=== PATIENT | male | born 1945 | race Caucasian/White ===

== ENCOUNTER → 2016-07-07 | Outpatient (CLI) | payer MEDICARE, BC ==
[~2016-07-07] MED LIST: ADVAIR 250/5028 PUFF IN; ADVAIR DISK28 PUFFS IN; ALBUTEROL-200 PUFFS/ IH; ALENDRONATE SOD70 M1 PO; AMOXICILLIN &500 MG PO; AMOXICILLIN 50500 MG PO; AMOXICILLIN/CLA1 TA2 PO; AMOXICOT500 MG PO; ANTIBIOTIC; ASPIRIN 81MG TA81 MG PO; AVPAK AZITHROM250 MG PO; AVPAK EXTENDED100 MG PO; AYR50 ML NS; AZITHROMYCIN250 MG PO; BACTRIM DS 8001 TAB PO; CARVEDILOL3.125 MG PO; CEFTIN500 MG PO; CHEWABLE ASPIRI81 MG PO; DILANTIN 100MG100 MG PO; DILANTIN100 MG PO; EFFIENT10 M2 PO; FLEXERIL10 MG PO; FLONASE 50 MCG16 GM; GABAPENTIN 600600 MG PO; GABAPENTIN300 MG PO; IBU-8800 MG PO; IBU800 MG PO; IPRATROPIUM BROM3 M1 IH; KEFLEX 500MG.500 MG PO; KEFLEX500 M1 PO; LEVAQUIN 750 M750 MG PO; LEVAQUIN500 MG PO; LEVOFLOXACIN 5500 MG PO; LEVOFLOXACIN 7750 M1 PO; LIPITOR80 MG PO; LORTAB 5/500 501 TAB PO; LORTAB 500 MG-71 TAB PO; MECLIZINE25 MG PO; MUCINEX600 MG PO; NAPROSYN 500MG500 MG PO; NAPROSYN500 M1 PO; NASONEX0.05 MG/AC INH; NYSTATIN 1100000 UNI PO; OXYGEN2; PANTOPRAZOLE40 M1 PO; PHENYTOIN PO; PRAVASTATIN 40M40 MG PO; PREDNICOT10 MG PO; PREDNISONE 20MG20 MG PO; PREDNISONE20 MG PO; PREDNISONE50 MG PO; PROAIR HFA0.09 MG/AC INH; ROBAXIN 500 MG500 MG PO; SPIRIVA18 MCG IH; THEO-DUR 300MG300 MG PO; TRAMADOL 50MG T50 M1 PO; TRAZODONE50 MG PO; ULTRAM ER200 MG PO
[2016-07-07 11:58] LABS: URINE BILIRUBIN - DIPSTICK NEGATIVE (NEG); URINE BLOOD 2+ (NEG)
[2016-07-07 12:04] LABS: BUN 14 mg/dL (7-18)
[2016-07-07 12:06] LABS: GFR (ESTIMATED) 60 ML/MIN (>60)
== END ==
LOC: LAB 10:50
PROVIDERS: Internal Medicine Nephrology
DX: N17.9 Acute kidney failure, unspecified (principal); R31.1 Benign essential microscopic hematuria

== ENCOUNTER 2016-08-14 06:05 | Day surgery (SDC) | payer MEDICARE, BC ==
[~2016-08-14] VITALS: Ht 167.6 cm; Wt 66.2 kg
[~2016-08-14 06:05] MED LIST changes: -AMOXICILLIN &500 MG PO; -ASPIRIN 81MG TA81 MG PO; -AVPAK EXTENDED100 MG PO; -AYR50 ML NS; -CARVEDILOL3.125 MG PO; -EFFIENT10 M2 PO; -FLONASE 50 MCG16 GM; -KEFLEX 500MG.500 MG PO; -LIPITOR80 MG PO; -PANTOPRAZOLE40 M1 PO; -TRAZODONE50 MG PO
[2016-08-14] MEDS ORDERED: KEFLEX 500MG.500 MG PO (06:15)
[2016-08-14] MEDS ORDERED: AVPAK EXTENDED100 MG PO (06:19)
[2016-08-14] MEDS ORDERED: TRAZODONE50 MG PO (06:20)
[2016-08-14] MEDS ORDERED: FLONASE 50 MCG16 GM (06:20)
[2016-08-14 06:42] LABS: HEMOGLOBIN 14.3 g/dL (14.1-18.0); LYMPH # 1.1 K/mm3 (0.7-4.5); LYMPH % 10.4 % (10-50)
--- NOTE | 2016-08-14 07:01 | Emergency Room Report ---
History of Present Illness Time Seen by [id number] Presenting Problem in Triage Pt arrived:Walked Presenting Problem:Short of breath x 3 weeks, is currently on an antibiotics per Dr. 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 N Clinical Suspician of Infection? N Mental Status: 1 - Regular (Normal Baseline) Sepsis Risk:Possible Sepsis Risk Have you (or family members/close friends) recently traveled outside the [place]? N If Yes, where/when: Have you had exposure to infectious disease within the past month? N TB? Other? Specify: Source patient, RN notes reviewed, old records Exam Limitations no limitations Comment pt with known copd o2 dep and has had progressive chest tightness over the last few days - he reports his breathing is more symptomatic - he has lt sided chest tightness zulema with use but also with rest now - he has abd coronary art on ct and has pos fh Cardiac Chest Pain Chest pain indicative of cardiac Yes Timing/Duration 1-3 hours, intermittent Severity/Quality moderate, tightness Location central Chest Pain Radiation no radiation Activities at Onset light activity, resting Nitro Today/Relief no nitro taken today Aspirin Treatment Today 325 mg x 1, provided by ED Beta claudio treatment today no beta claudio taken Cardiac risk factors Elevated lipids, + family history Prior Workup/Intervention no prior cardiac workup Timing/Duration this morning Severity moderate ALLERGIES Coded Allergies: No Known Allergies (09/27/15) Home Medications Active Scripts Prednisone (Prednisone 20MG) 20 MG PO DAILY #30 TAB Ref 5 Prov: 09/14/15 LEVOFLOXACIN (Levofloxacin) 500 MG PO 1100 #6 TABLET Prov: 09/28/15 Prednisone (Prednisone 20MG) 20 MG PO CONSULT PHARMACY #28 TAB Prov: 09/28/15 Reported Medications Gabapentin (Gabapentin 600MG) 600 MG PO Q8 #60 ALBUTEROL-IPRATROPIUM (Iprat-Albut 0.5-3(2.5) MG/3 Ml) 3 ML IH QID Tiotropium [place] (Spiriva) 18 MCG IH DAILY PRAVASTATIN SODIUM (Pravastatin Sodium) 40 MG PO QHS Albuterol (Albuterol-Hfa Inhaler) 1-2 PUFFS IH Q4HP PRN SHORTNESS OF BREATH #1 INH FLUTICASONE/SALMETEROL (Advair 500-50 Diskus) 1 PUFF IN BID CEPHALEXIN (Keflex 500MG Capsule) 500 MG PO BID #40 PHENYTOIN SODIUM EXTENDED (Phenytoin Sodium Extended) 400 MG PO QHS #120 Trazodone Hcl (Trazodone HCl) 50 MG PO QHS #30 Fluticasone Propionate (Flonase 50 Mcg Nasal [place]) 1 SPRAY NA DAILY #16 History Medical History General CAD? No Angina: No RI: No Hypertension? No Hyperlipidemia? Yes CHF? No DVT? No PE? No COPD? Yes Asthma? Yes Anemia? No GERD? No Gastric ulcers? No GI Bleed? No Hernia? No Thyroid Problems? No Hypothyroidism? No CVA? No Seizures? Yes Diabetes? No Insulin Dependent: No Insulin Pump: No Home FSBS? No Renal Insuffiency? No End Stage Renal Disease? No UTI? No Stones? No BPH? No GB Disease: No Nephritic Syndrome? No Asplenia? No Hepatitis? No Sickle Cell Disease? No Arthritis? No Migraines? No Cataracts? No Glaucoma? No MRSA? No HIV? No TB? No Anxiety? No Depression? No Cancer? No More? Yes Additional hx: FACIAL FX 08/2015 Immunization Hx DT/Tetanus 03/24/16 Flu Refused Pneumonia Received In Past Surgical Hx Previous Surgery?Y CYST FROM BACK LT ANKLE CHEST TUBE Family History Family Hx Diabetes No CAD No Hypertension No Hyperlipidemia Yes Cancer No TB No Social History Smoking Hx Smoker: Former Smoker Tobacco: No Alcohol Alcohol: No Drugs none Review of Systems All Other Systems Reviewed and Negative Constitutional denies fever Eyes denies drainage ENT denies: ear pain, epistaxis, throat pain. Respiratory see HPI, denies cough, shortness of breath, denies wheezing Cardiovascular chest pain, denies palpitations, denies syncope Gastrointestinal denies diarrhea, denies vomiting Genitourinary denies: dysuria, frequency, hesitancy, hematuria. Musculoskeletal denies back pain, denies joint pain, denies joint swelling, denies neck pain Skin denies rash Psychiatric/Neurological denies headache, denies seizure Physical Exam Vital Signs Vital Signs Date Time Temp Pulse Resp B/P Pulse O2 O2 Flow FiO2 Ox Delivery Rate 08/14 0817 90 20 135/76 95 2 08/14 0740 85 20 148/80 96 2 08/14 0703 72 18 121/64 96 08/14 0638 2 08/14 0638 2 08/14 0538 2 08/14 0538 98 2 08/14 0610 97.9 99 24 135/84 97 2 08/14 0608 99 - WBC >12,000 or <4,000 or 10% bands? 2 or more SIRS Criteria Met? B/P:135/76 MAP:101 Creatinine >2.0? UA output<0.5ml/kg/hr for 2 hrs? Platelet count >100,000? Lactate >2.0mmol/1? INR >1.2 or PTT > than 60 sec? Evidence of Organ Dysfunction? Provider documented clinical suspician of infection? N Sepsis Criteria Count: 2 Sepsis Risk: Possible Sepsis Risk General Appearance no apparent distress Eye Exam - bilateral eye PERRL, bilateral eye EOMI Ear, Nose, Throat normal ENT inspection Neck supple Respiratory Status No: respiratory distress. Lung Sounds bilateral: decreased breath sounds. 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 No Results/Orders Laboratory Tests 08/14/16 0620: Lactic Acid 1.9 08/14/16 0620: Sodium 138, Potassium 3.6, Chloride 102, Carbon Dioxide 27, BUN 16, Creatinine 1.0, Estimated Creat Clear 64, Estimated GFR (MDRD) 74, Glucose 135 H, Calcium 8.6, Total Bilirubin 0.2, AST 9 L, ALT 21, Alkaline Phosphatase 122 H, Total Protein 6.7, Albumin 3.3 L, Globulin 3.4 H, Albumin/Globulin Ratio 1.0 L, WBC 10.6, RBC 4.81, Hgb 14.3, Hct 39.5 L, MCV 82.3, RDW 14.5, Plt Count 252, MPV 5.8 L, Gran % 77.1, Gran # 8.2 H, Lymphocytes % 10.4, Monocytes % 4.9, Eosinophils % 7.3, Basophils % 0.2, Lymphocytes # 1.1, Monocytes # 0.5, Eosinophils # 0.8 H, Basophils # 0.0, PUBS MCHC 36.2 H, MCH 29.8 08/14/16 0015: Creatine Kinase 109, CK-MB (CK-2) Rel Index 2.6, CK and CKMB Interp 2.8, Troponin I < 0.02 Current Medication Orders Sig/Faraz Start time Last Medication Dose Route Stop Time Status Admin Methylprednisolone 125 MG ONCE ONE 08/14 0800 DC Sodium Succinate IV 08/14 0801 Albuterol/Ipratropium 0 .STK-MED ONE 08/14 0632 DC INH Albuterol/Ipratropium 3 ML ONCE ONE 08/14 06 DC 08/14 INH 08/14 0631 0637 Sodium Chloride 10 ML PRN PRN 08/14 06 AC IV 08/15 06 Orders Procedure Date/time Status LHC W/VENTRICLE 08/14 0834 Active 12 LEAD EKG-BESSON (INITIAL) 08/14 0710 Active ELECTROCARDIOGRAM REQUEST 08/14 0710 Active CARDIAC ENZYMES 08/14 0710 Complete OP COURTSEY MEAL 08/14 0655 Active RT Pulse Oximetry, Provide 08/14 06 Active RT O2 Installation/Change Set 08/14 0638 Active RT O2 Therapy, Monitor/[place] 08/14 0638 Active RT Aerosol Treatment, Provide 08/14 06 Active RT Aerosol Treatment, Provide 08/14 06 Active IV SALINE LOCK 08/14 0625 Active RT REQUEST DUONEB 08/14 0624 Active OXYGEN PER NURSE 08/14 0624 Active CHEST(2 VIEWS-NOT PORTABLE) 08/14 06 Active CULTURE, BLOOD 08/14 06 Active LACTIC ACID 08/14 06 Complete CBC WITH AUTO DIFF 08/14 622 Complete CHEM 12 PROFILE 08/14 622 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 ST/Twave chgs XRAY/CT/US XRAY/CT/US XRAY chest XR interpretation by reviewed by me Xray Results abnormal (chronic changes ) Departure Departure Time of Disposition 0844 Disposition DC Home or Self Care(routine) Clinical Impression Primary Impression: Chest pain at rest Secondary Impressions: COPD (chronic obstructive pulmonary disease) Qualifiers: COPD type: unspecified COPD Qualified Code: J44.9 - Chronic obstructive pulmonary disease, unspecified Condition STABLE Referrals Faustino BURNS,Damian Dominguez (Family) had card see pt ED Critical Care Critical Care No Comments feel like his chest pain is anginal and has sig risk factors and ca on ct at 0846
--- NOTE | 2016-08-14 08:53 | CONSULT NOTE ---
Standard Demographics Patient Demo Date of Consultation: 08/14/16 Referring Provider: Michael Rodriguez MD Reason for Consultation: Unstable angina pectoris PRIMARY DIAGNOSIS: chest tightness, SOA Problem list Problem list: 1. Chronic obstructive pulmonary disease, chronic oxygen use A. Smoking discontinued [address] of the chest 2015 showing severe chronic obstructive pulmonary disease with evidence of coronary calcification. 2. Hyperlipidemia 3. Family history of coronary disease in a younger brother with history of 3 myocardial infarctions was a nonsmoker 4. Abnormal electrocardiogram with nonspecific ST-T abnormalities. History of present illness: History of present illness: 70-year-old white male with known severe chronic obstructive pulmonary disease that is oxygen requiring was seen in the emergency department for increasing shortness of breath and chest tightness over the last 2 weeks. Patient has been aggressively treated in an outpatient setting with antibiotics and steroids without improvement. He relates he cannot walk more than 40 feet without having chest tightness that resolves with rest. This a.m. he was in route to work when the shortness of breath and chest tightness onset worse than previous. He came to the emergency department for treatment. Electrocardiogram in the emergency room shows sinus rhythm with nonspecific ST-T abnormalities. Initial troponin is normal. Chest x-ray shows no significant change in chronic obstructive pulmonary disease pattern. Patient has some chronic left-sided chest pain from her previous chest tube 2 years ago due to a collapsed lung. The symptoms he is experiencing at this time are different. Patient does relate a a younger, nonsmoker brother who has had 3 myocardial infarctions. Patient had a CT of the chest last year that showed coronary calcification in addition to severe chronic obstructive pulmonary disease. Due to suspected unstable angina pectoris cardiology consulted for evaluation and recommendations. Past Medical History: General: Hypertension No CVA No Seizures Yes TB No COPD Yes Asthma Yes Diabetes No Insulin Dependent No Insulin Pump No Angina No VA No Hyperlipidemia Yes Urinary No Cancer No Rheumatic H.D. No Ulcers No MRSA No GB Disease No Other EMPHYSEMA Additional hx FACIAL FX 08/2015 Past Surgical HX: Previous Surgery?Y CYST FROM BACK LT ANKLE CHEST TUBE Allergies Coded Allergies: No Known Allergies (09/27/15) Home medications: Active Scripts Prednisone (Prednisone 20MG) 20 MG PO DAILY #30 TAB Ref 5 Prov: 09/14/15 LEVOFLOXACIN (Levofloxacin) 500 MG PO 1100 #6 TABLET Prov: 09/28/15 Prednisone (Prednisone 20MG) 20 MG PO CONSULT PHARMACY #28 TAB Prov: 09/28/15 Reported Medications Gabapentin (Gabapentin 600MG) 600 MG PO Q8 #60 ALBUTEROL-IPRATROPIUM (Iprat-Albut 0.5-3(2.5) MG/3 Ml) 3 ML IH QID Tiotropium [place] (Spiriva) 18 MCG IH DAILY PRAVASTATIN SODIUM (Pravastatin Sodium) 40 MG PO QHS Albuterol (Albuterol-Hfa Inhaler) 1-2 PUFFS IH Q4HP PRN SHORTNESS OF BREATH #1 INH FLUTICASONE/SALMETEROL (Advair 500-50 Diskus) 1 PUFF IN BID CEPHALEXIN (Keflex 500MG Capsule) 500 MG PO BID #40 PHENYTOIN SODIUM EXTENDED (Phenytoin Sodium Extended) 400 MG PO QHS #120 Trazodone Hcl (Trazodone HCl) 50 MG PO QHS #30 Fluticasone Propionate (Flonase 50 Mcg Nasal [place]) 1 SPRAY NA DAILY #16 Current Medications: Current Medications Heparin Sodium/Sodium Chloride 1,500 ML .STK-MED ONE IV (DC) Lidocaine HCl 0 .STK-MED ONE .ROUTE (DC) Sodium Chloride 1,000 ML .STK-MED ONE IV (DC) Methylprednisolone Sodium Succinate 125 MG ONCE ONE IV (DC) Albuterol/Ipratropium 0 .STK-MED ONE INH (DC) Albuterol/Ipratropium 3 ML ONCE ONE INH (DC) Sodium Chloride 10 ML PRN PRN IV Immunization HX DT/Tetanus 03/24/16 Flu Refused Pneumonia RECEIVED IN PAST Family history Family HX Family Hx Insignificant No Diabetes No CAD No Hypertension No Hyperlipidemia Yes Cancer No TB No Social Hx: Smoking HX Tobacco No Alcohol Alcohol: No Hx of Drug Use Drug Use? No Patien't marital status is single Patient's support system is good Review of systems: Constitutional No: no symptoms reported. Respiratory see HPI, SOB with excertion. Cardiovascular see HPI, chest pain Gastrointestinal/Abdominal No no symptoms reported Genitourinary No: no symptoms reported. Musculoskeletal other (chronic left-sided chest pain). Neurological Yes: parasthesia. Exam: Admission Vital Signs: 1ST Vital Signs Result Date Time Pulse Ox 99 08/14 0608 B/P 135/84 08/14 0610 O2 Flow Rate 2 08/14 0510 Temp 97.9 08/14 0610 Pulse 99 08/14 0610 Resp 24 08/14 609 Last Vital Signs: Vital Signs Result Date Time Pulse Ox 95 08/14 816 B/P 135/76 08/14 816 O2 Flow Rate 2 08/14 816 Pulse 90 08/14 816 Resp 20 08/14 816 Temp 97.9 08/14 0510 Exam General appearance: alert, awake, no acute distress Neck: no carotid bruit, no JVD Cardiovascular: regular rate & rhythm, no murmur Respiratory: markedly diminished breath sounds bilaterally without rhonchi or wheezing at this time. ABD: soft, no tenderness Extremities: moves all, no peripheral edema Neuro: alert, intact, oriented, speech clear Plan: Assessment: 1. Unstable angina pectoris in a patient with HEMANT score of 3 (age, recurrent chest pain, cardiac risk factors including chest CT with coronary calcification noted, strong family history of early coronary artery disease in his brother and hyperlipidemia). Patient would not be able to undergo stress testing as he would not be able to walk more than 40 feet and I do not think he would tolerate Lexiscan due to severe COPD. I believe it is appropriate to proceed with cardiac catheterization to define the patient's coronary anatomy. Risks and benefits discussed with the patient. He agrees to proceed. Patient will receive adult strength aspirin. 2. Severe chronic obstructive pulmonary disease 3. Hyperlipidemia 4. Strong family history of coronary artery disease 5. Nonspecific ST-T abnormalities on electrocardiogram Recommendations: See above. at 0854
--- NOTE | 2016-08-14 11:11 | RADIOLOGY REPORT PS360 ---
CHEST(2 VIEWS-NOT PORTABLE) HISTORY: Cough and wheezing with shortness of air SOA ORDERING PHYSICIAN: Carlota Rodriguez MD PATIENT AGE: 70 years COMPARISON: 09/27/2015 FINDINGS: The cardiomediastinal silhouette and pulmonary vascularity are within normal limits. COPD with chronic coarsening of the bronchovascular markings. Minimal atelectatic changes present in the left lower lobe. No lobar consolidation or collapse.. There is a 5 cm pneumatocele in the left perihilar region not significantly changed. There is moderate wedging of T7 anteriorly not significant change from prior chest CT of 01/02/2016. IMPRESSION: 1. Emphysematous changes with left perihilar pneumatocele and minimal atelectatic change in left lower lobe. No acute infiltrate. 2. Chronic wedge compressive changes at T7
--- NOTE | 2016-08-14 11:56 | RADIOLOGY REPORT PS360 ---
CARDIAC CATHETERIZATION DATE OF CATHETERIZATION:08/14/2016 10:27 AM PROCEDURES: 1. Catheter placement in the right radial artery 2. Right radial artery retrograde angiogram 3. Left heart catheterization 4. Left ventriculogram 5. Selective coronary angiogram 6. Angioplasty to the proximal circumflex artery INDICATION FOR TEST: 1. Coronary artery disease 2. Unstable angina 3. Right radial artery tortuosity Informed consent was obtained prior to the procedure. COMPLICATIONS: None ESTIMATED BLOOD LOSS: Less than 10 ml. TECHNIQUE: One percent lidocaine was used to anesthetize the right anterior aspect of the right wrist. The right radial artery was accessed via the Seldinger technique and a 6 [place] hydrophilic sheath was placed in the right radial artery. 5000 units of heparin as well as verapamil and nitroglycerin was administered intra-arterially. The initial wire would not easily traverse the proximal portion of the radial artery therefore the [place]ida catheter was advanced and retrograde angiography was performed. This demonstrated a corkscrew radial artery. An angled Glidewire was initially used to try to negociate the tortuosity however I continually entered a side branch and after a few attempts I decided to have band in the radial access and proceed with femoral access. 1% lidocaine was used to anesthetize the right groin in the right femoral artery was accessed via the Seldinger technique. A 4 [place] sheath was placed in the right femoral artery and a JL 4 JR4 catheter were used to perform left heart catheterization left ventriculogram and selective coronary angiography. At the end of the diagnostic procedure an additional 2000 units of heparin was administered intravenously and the ACT was measured at 249 seconds. An additional 2000 units of heparin was ordered because of Hemochron machine the ACT needed to be greater than 250. He BU3.75 guide catheter was used intubate the left main artery and a BMW wire was used to traverse the stenosis in the obtuse marginal artery. Initially 1.5 x 12 mm balloon was used to predilate the stenosis however I could not get this to cross the severe eccentric calcified obtuse marginal artery. A 1.5 x 6 mm balloon was then advanced until the proximal portion and then inflated at 20 armani also without success. A 1.25 x 15 mm balloon was then advanced and also would not traverse the stenosis. I was able to get the proximal tip to the calcified lesion in either and after 20 armani of inflation there was no reduction in the calcification. And a final attempt a guideline her was placed in the proximal portion of the circumflex artery and still a fresh 1.25 mm balloon would not traverse the stenosis. At this point I decided to abandon the procedure and transfer patient to [facility] for rotablator of the circumflex artery and most likely percutaneous revascularization the dominant right coronary artery. The apparatus was removed the groin was reprepped gloves were changed sheath was removed good hemostasis was achieved using Perclose device H was transferred to the postop holding area in stable condition and waiting transfer to [facility] under Narendra Rey M.D.'s care. ANGIOGRAPHIC RESULTS: 1. The left main artery has a distal eccentric 30% stenosis 2. The left anterior descending artery has a long mid vessel calcified 50-60% stenosis 3. The circumflex artery is a nondominant vessel and has proximal eccentric 80% stenosis followed by a very eccentric calcified greater than 90% stenosis and a 2.5 mm first obtuse marginal artery 4. The right coronary artery is a very large dominant vessel and has diffuse vasculopathy from the proximal mid and distal segment. Proximally there is a 50-60% eccentric stenosis with additional 60% hazy stenosis and a hazy 70% stenosis immediately distal to the RV marginal branch followed by additional 50-60% distal stenoses followed by an additional very eccentric 50% stenosis immediately proximal to the junction of the posterior lateral ventricular branch and large posterior descending artery. The posterior lateral ventricular branch has mid vessel 40% plaque while the PDA also has 30-40% mid vessel plaque 5. The [place] OCA ventriculogram reveals normal ejection fraction estimated at 65% 6. The left ventricular end-diastolic pressure less than 10 mmHg IMPRESSION: 1. Severe 2 vessel coronary artery disease as described above 2. Angioplasty of the circumflex artery which did not reduce the highly eccentric calcified stenosis 3. Persistent severe stenosis in the first obtuse marginal artery and proximal nondominant circumflex artery 4. Persistent moderate to severe disease throughout the proximal mid distal dominant right coronary artery 5. Persistent moderate disease in the mid LAD 6. Normal ejection fraction 7. Normal left ventricular end-diastolic pressure 8. Tortuous but patent right radial artery PLAN: 1. Patient requires Rotablator to the circumflex artery. He'll be transferred to [facility] under Dr. Narendra Rey's care for evaluation of additional percutaneous revascularization 2. At this point I believe the LAD can be managed medically. 3. LDL less than 70 4. Risk factor modification 5. Patient will be transferred to [facility] this morning given his associated unstable anginal symptoms
[2016-08-14 13:38] VITALS: BP 128/87
[2016-08-26] MEDS ORDERED: ASPIRIN 81MG TA81 MG PO (18:25)
[2016-08-26] MEDS ORDERED: LIPITOR80 MG PO (23:27)
[2016-08-26] MEDS ORDERED: CARVEDILOL3.125 MG PO (23:36)
[2016-08-26] MEDS ORDERED: PANTOPRAZOLE40 M1 PO (23:41)
[2016-08-26] MEDS ORDERED: EFFIENT10 M2 PO (23:47)
[2016-08-26] MEDS ORDERED: AZITHROMYCIN250 MG PO (23:52)
[2016-08-28] MEDS ORDERED: AYR50 ML NS (15:56)
[2016-08-28] MEDS ORDERED: AMOXICILLIN &500 MG PO (15:58)
== END 2016-08-14 12:00 | disposition short-term general hospital (02) ==
LOC: ER 06:05 → SDC 08:38 → CATHLAB 08:38
PROVIDERS: Emergency Medicine; Internal Medicine
PROC: 4A023N7 Measurement of Cardiac Sampling and Pressure, Left Heart, Percutaneous Approach (ICD-10-PCS; 2016-08-14)
PROC: B2111ZZ Fluoroscopy of Multiple Coronary Arteries using Low Osmolar Contrast (ICD-10-PCS; 2016-08-14)
PROC: B2151ZZ Fluoroscopy of Left Heart using Low Osmolar Contrast (ICD-10-PCS; 2016-08-14)
PROC: 02703ZZ Dilation of Coronary Artery, One Artery, Percutaneous Approach (ICD-10-PCS; 2016-08-14)
PROC: B31H1ZZ Fluoroscopy of Right Upper Extremity Arteries using Low Osmolar Contrast (ICD-10-PCS; principal; 2016-08-14 10:00)
DX: I25.110 Atherosclerotic heart disease of native coronary artery with unstable angina pectoris (principal); I77.1 Stricture of artery; J44.9 Chronic obstructive pulmonary disease, unspecified; Z99.81 Dependence on supplemental oxygen
CPT/HCPCS: C1725; C1760; C1769; C1894; J1644; J2405; Q9967

== ENCOUNTER 2016-10-26 17:15 | Emergency (ER) | payer MEDICARE, BC ==
[~2016-10-26] VITALS: Ht 167.6 cm; Wt 67.6 kg
[~2016-10-26 17:15] MED LIST changes: +AMOXICILLIN &500 MG PO; +ASPIRIN 81MG TA81 MG PO; +AVPAK EXTENDED100 MG PO; +AYR50 ML NS; +CARVEDILOL3.125 MG PO; +EFFIENT10 M2 PO; +FLONASE 50 MCG16 GM; +KEFLEX 500MG.500 MG PO; +LIPITOR80 MG PO; +PANTOPRAZOLE40 M1 PO; +TRAZODONE50 MG PO
[2016-10-26] MEDS ORDERED: CLOPIDOGREL75 M2 PO (17:59)
[2016-10-26 18:23] LABS: HEMOGLOBIN 11.4 g/dL (14.1-18.0); LYMPH # 0.8 K/mm3 (0.7-4.5); LYMPH % 8.3 % (10-50)
[2016-10-26 18:36] LABS: NEUTROPHILS 83 % (42-76)
[2016-10-26 20:09] VITALS: BP 118/70
--- OUTSIDE RECORDS SUMMARY | 2016-10-27 07:38 | External Medical Summary Rpt ---
Author Author , Organization [employer] Address Unknown Phone Unavailable Purpose Continuity of Care Document - through 2016
--- OUTSIDE RECORDS SUMMARY | 2016-10-27 07:38 | External Medical Summary Rpt ---
Author Author [employer], [employer] Organization [employer] Address Unknown Phone Unavailable
--- OUTSIDE RECORDS SUMMARY | 2016-10-27 07:38 | External Medical Summary Rpt ---
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 Role Phone [facility], [facility] Purpose Continuity of Care Document - 05-04-2013 through 2016 Problems Code Diagnosis DOS Provider Status [id number] Chronic [facility] R04.0 EPISTAXIS Allergies, Adverse Reactions, Alerts Type Allergy to substance Adverse Reaction to Substance Substance Reaction Severity NO KNOWN ALLERGIES Unknown Unknown Vital Signs 05-04-2013 12:20 Name Value Interpretat Reference Comment ion Range Body 99.4 [degF] Temperature BP 93 mm[Hg] Diastolic BP Systolic 141 mm[Hg] Heart 90 /min Rate/Pulse O2% 97 % Respiratory 24 /min Rate Encounters Encounter Start End Date Code Location Performer Type Date Emergency MOISES Mckeon (ER) 3 12:15 3 12:28 [facility] Louie Dominguez
--- OUTSIDE RECORDS SUMMARY | 2016-10-27 07:38 | External Medical Summary Rpt ---
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
--- OUTSIDE RECORDS SUMMARY | 2016-10-27 07:38 | External Medical Summary Rpt ---
Demographics Preferred Language Hebrew Marital Status Unknown Hindu Affiliation Unknown Race Unknown Ethnic Group Unknown Author Author , Organization [employer] Address Unknown Phone Unavailable Purpose Continuity of Care Document - through 2016 Immunization No patient found.
--- OUTSIDE RECORDS SUMMARY | 2016-10-27 07:38 | External Medical Summary Rpt ---
Demographics Preferred Language Syriac Marital Status Unknown Buddhism Affiliation Unknown Race Unknown Ethnic Group Unknown Author Author , Organization [employer] Address Unknown Phone Unavailable Purpose Continuity of Care Document - through 2016 Immunization No patient found.
== END 2016-10-26 20:16 | disposition left against medical advice (07) ==
LOC: ER 17:15 → UTC 17:15 → ER 18:06
PROVIDERS: General Practice
DX: Z53.29 Procedure and treatment not carried out because of patient's decision for other reasons (principal); R04.0 Epistaxis

== ENCOUNTER 2017-05-13 22:24 | Inpatient (IN) | payer MEDICARE, BC ==
[~2017-05-13] VITALS: Ht 167.6 cm; Wt 62.3 kg
[~2017-05-13 22:24] MED LIST changes: +CLOPIDOGREL75 M2 PO
[2017-05-13 22:30] VITALS: BP 162/104
[2017-05-13 22:39] LABS: ARTERIAL PO2 87.7 MMHG (80-100)
[2017-05-13 22:40] LABS: ALLEN'S TEST ACCEPTABLE; ARTERIAL ABE 5.3 MMOL/L (-2.4-+2.3); ARTERIAL TCO2 31.8 MMOL/L (23-27); OXYGEN 2LPM NC.
[2017-05-13 22:54] LABS: LYMPH # 1.1 K/mm3 (0.7-4.5); LYMPH % 7.2 % (10-50)
[2017-05-13] MEDS ORDERED: DOXYCYCLINE HY100 MG PO (22:55)
[2017-05-13] MEDS ORDERED: ALENDRONATE SOD70 M1 PO (22:55)
[2017-05-13] MEDS ORDERED: SPIRIVA HA1 PUFF/INH IH (22:56)
[2017-05-13] MEDS ORDERED: FERROUS SULFAT325 M2 PO (22:56)
--- NOTE | 2017-05-13 22:56 | Emergency Room Report ---
History of Present Illness Time Seen by MD Krishna Presenting Problem in Triage Pt arrived:Walked Presenting Problem:C/O SHORTNESS OF BREATH. 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 N Clinical Suspician of Infection? N Mental Status: 1 - Regular (Normal Baseline) Sepsis Risk:Low Sepsis Risk Have you (or family members/close friends) recently traveled outside the [place]? N If Yes, where/when: Have you had exposure to infectious disease within the past month? N TB? Other? Specify: Source patient, RN notes reviewed, family, old records Exam Limitations no limitations Comment pt with hx of o2 dep copd with increasing sob despite op rx with pcp and abx/ steroids and breathing treatments- no chest pain or hemoptysis Cardiac Chest Pain Chest pain indicative of cardiac No Timing/Duration this evening Severity moderate ALLERGIES Coded Allergies: No Known Allergies (09/27/15) Home Medications Active Scripts Prednisone (Prednisone 20MG) 20 MG PO DAILY #30 TAB Ref 5 Prov: 09/14/15 Reported Medications Atorvastatin Calcium (Atorvastatin) 80 MG PO QHS ALBUTEROL-IPRATROPIUM (Iprat-Albut 0.5-3(2.5) MG/3 Ml) 3 ML IH QID Carvedilol (Carvedilol 3.125MG) 3.125 MG PO BID Pantoprazole Sodium (Pantoprazole) 40 MG PO DAILY Albuterol (Albuterol-Hfa Inhaler) 1-2 PUFFS IH Q4HP PRN SHORTNESS OF BREATH #1 INH FLUTICASONE/SALMETEROL (Advair 500-50 Diskus) 1 PUFF IN BID PHENYTOIN SODIUM EXTENDED (Phenytoin Sodium Extended) 400 MG PO QHS #120 Trazodone Hcl (Trazodone HCl) 50 MG PO QHS #30 Fluticasone Propionate (Flonase 50 Mcg Nasal [place]) 1 SPRAY NA DAILY #16 ASPIRIN (Aspirin) 81 MG PO DAILY CLOPIDOGREL BISULFATE (Clopidogrel) 75 MG PO DAILY #30 Alendronate Sodium 70 MG PO WEEKLY #12 Doxycycline Hyclate 100 MG PO BID #20 Tiotropium [place] (Spiriva) 1 PUFF IH DAILY #30 Ferrous Sulfate (Ferrous Sulfate 325MG) 325 MG PO BID History Medical History General CAD? Yes Angina: No NH: No Hypertension? No Hyperlipidemia? Yes CHF? No DVT? No PE? No COPD? Yes Asthma? Yes Anemia? No GERD? No Gastric ulcers? No GI Bleed? No Hernia? No Thyroid Problems? No Hypothyroidism? No CVA? No Seizures? Yes Diabetes? No Insulin Dependent: No Insulin Pump: No Home FSBS? No Renal Insuffiency? Yes End Stage Renal Disease? No UTI? No Stones? No BPH? No GB Disease: No Nephritic Syndrome? No Asplenia? No Hepatitis? No Sickle Cell Disease? No Arthritis? Yes Migraines? No Cataracts? No Glaucoma? No MRSA? No HIV? No TB? No Anxiety? No Depression? No Cancer? No More? Yes Additional hx: FACIAL FX 08/2015 Immunization Hx DT/Tetanus 03/24/16 Flu 2015-FSN Pneumonia Received In Past Surgical Hx Previous Surgery?Y CYST FROM BACK LT ANKLE CHEST TUBE STENTS X2 Family History Family Hx Diabetes No CAD No Hypertension No Hyperlipidemia Yes Cancer No TB No Social History Smoking Hx Smoker: Former Smoker Tobacco: No Type Cigarettes Packs/day N/A Alcohol Alcohol: No Drugs none Review of Systems All Other Systems Reviewed and Negative Constitutional denies fever Eyes denies drainage ENT denies: ear discharge, epistaxis, throat pain. Respiratory cough, shortness of breath, wheezing Cardiovascular denies chest pain, denies palpitations, denies syncope Gastrointestinal denies abdominal pain, denies diarrhea, denies vomiting Genitourinary denies: dysuria, frequency, hesitancy, hematuria. Musculoskeletal denies back pain, denies joint pain, denies joint swelling, denies neck pain Skin denies rash Psychiatric/Neurological denies headache, denies seizure Physical Exam Vital Signs Vital Signs Date Time Temp Pulse Resp B/P Pulse O2 O2 Flow FiO2 Ox Delivery Rate 05/13 2319 91 18 141/91 97 05/13 2230 97.8 94 18 162/104 98 - WBC >12,000 or <4,000 or 10% bands? 2 or more SIRS Criteria Met? B/P:141/91 MAP:123 Creatinine >2.0? UA output<0.5ml/kg/hr for 2 hrs? Platelet count >100,000? Lactate >2.0mmol/1? INR >1.2 or PTT > than 60 sec? Evidence of Organ Dysfunction? Provider documented clinical suspician of infection? N Sepsis Criteria Count: 1 Sepsis Risk: Low Sepsis Risk General Appearance no apparent distress Eye Exam - bilateral eye PERRL, bilateral eye EOMI Ear, Nose, Throat normal ENT inspection Neck non-tender Respiratory Status No: respiratory distress. Lung Sounds bilateral: decreased breath sounds, rhonchi, wheezing. 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 No Results/Orders Laboratory Tests 05/13/172238: Sodium 139, Potassium 3.7, Chloride 102, Carbon Dioxide 33 H, BUN 19 H, Creatinine 1.0, Estimated Creat Clear 63, Estimated GFR (MDRD) 74, Glucose 140 H, Calcium 8.8, Total Bilirubin 0.2, AST 11 L, ALT 22, Alkaline Phosphatase 138 H, Creatine Kinase 84, CK-MB (CK-2) Rel Index 3.5, CK and CKMB Interp 2.9, Troponin I < 0.02, Total Protein 7.1, Albumin 3.6, Globulin 3.5 H, Albumin/ Globulin Ratio 1.0 L, WBC 14.7 H, RBC 5.12, Hgb 13.4 L, Hct 42.3, MCV 82.7, RDW 17.0, Plt Count 237, MPV 6.4 L, Gran % 84.2 H, Gran # 13.0 H, Lymphocytes % 7.2 L, Monocytes % 6.4, Eosinophils % 1.9, Basophils % 0.3, Lymphocytes # 1.1 , Monocytes # 1.0, Eosinophils # 0.3, Basophils # 0.0, PUBS MCHC 31.7 L, MCH 26.2 L, Phenytoin Pending 05/13/172234: ABG pH 7.39, ABG pCO2 (Temp Corrct 50.6 H, ABG pO2 (Temp Correct 87.7, ABG HCO3 30.2 H, ABG Total CO2 31.8 H, ABG O2 Sat (Calculated) 96.7, ABG Base Excess 5.3 H, Dave Test ACCEPTABLE Current Medication Orders Sig/Faraz Start time Last Medication Dose Route Stop Time Status Admin Azithromycin 500 MG ONCE ONE 05/13 2330 AC 05/13 Sodium Chloride 250 ML IV 05/149 2327 Ceftriaxone Sodium 1 GM ONCE ONE 05/13 2330 AC 05/13 Sodium Chloride 50 ML IV 05/13 2359 232 Methylprednisolone 0 .STK-MED ONE 05/13 2301 DC Sodium Succinate .ROUTE Albuterol/Ipratropium 3 ML ONCE ONE 05/13 2300 DC 05/13 INH 05/13 2301 225 Methylprednisolone 125 MG ONCE ONE 05/13 2300 DC 05/13 Sodium Succinate IV 05/13 2301 230 Albuterol/Ipratropium 0 .STK-MED ONE 05/13 2245 DC INH Sodium Chloride 10 ML PRN PRN 05/13 2245 AC IV 05/14 2232 Orders Procedure Date/time Status Decision to admit 05/13 2323 Active PHENYTOIN (DILANTIN) 05/13 231 Active RT Aerosol Treatment, Provide 05/13 2258 Active RT REQUEST DUONEB 05/13 2249 Active 12 LEAD EKG-ZHAO (INITIAL) 05/13 2233 Active ELECTROCARDIOGRAM REQUEST 05/13 2233 Active ARTERIAL BLOOD GAS REQUEST 05/13 2233 Active CHEST-PORTABLE 05/13 2233 Active IV SALINE LOCK 05/13 2233 Active COMPLETE METABOLIC PANEL 05/13 2233 Complete CBC WITH AUTO DIFF 05/13 2233 Complete CARDIAC ENZYMES 05/13 2233 Complete CM/EKG CM/learning support assistant 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 ST/Twave chgs XRAY/CT/US XRAY/CT/US XRAY chest XR interpretation by reviewed by me Xray Results abnormal (copd) Departure Departure Time of Disposition 2330 Disposition Still a Patient Clinical Impression Primary Impression: COPD (chronic obstructive pulmonary disease) with acute bronchitis Condition STABLE Referrals Besson MD,Wilian discussed with dr dunbar ED Critical Care Critical Care No at 3028
[2017-05-13 22:57] LABS: HEMOGLOBIN 13.4 g/dL (14.1-18.0)
[2017-05-13 23:16] LABS: BUN 19 mg/dL (7-18); GFR (ESTIMATED) 74 ML/MIN (>60)
[2017-05-14 00:11] VITALS: BP 148/90
[2017-05-14 03:58] VITALS: BP 123/75
--- NOTE | 2017-05-14 05:43 | RADIOLOGY REPORT PS360 ---
CHEST-PORTABLE HISTORY: Shortness of breath sob ORDERING PHYSICIAN: Wilian Miller MD PATIENT AGE: 71 years COMPARISON: 08/14/2016 FINDINGS: The cardiomediastinal silhouette and pulmonary vascularity are within normal limits. Hyperinflation and hyperlucency consistent with obstructive chronic bronchitis. Lucency is once again noted in the left perihilar region consistent with a bulla. There is increased density in the right upper lobe laterally consistent with pneumonia. Chronic peribronchial inflammatory changes are noted. IMPRESSION: 1. Right upper lobe pneumonia. 2. COPD with left midlung bulla.
[2017-05-14 07:24] LABS: HEMOGLOBIN 12.3 g/dL (14.1-18.0); LYMPH # 0.7 K/mm3 (0.7-4.5)
[2017-05-14 08:00] VITALS: BP 130/67
--- NOTE | 2017-05-14 08:13 | PHARMACY CLINIC NOTE ---
Patient Demographics Patient Demographics Admission date: 05/14/17 Date: 05/14/17 Time: 0813 Allergies Coded Allergies: No Known Allergies (09/27/15) HEIGHT- FT: 5 IN: 6.00 K.313 VTE General Information Labs: Laboratory Tests 05/14 05/13 0612 2239 Hematology Hgb (14.1 - 18.0 g/dL) 12.3 L 13.4 L Hct (42.0 - 52.0 %) 38.0 L 42.3 Plt Count (142 - 424 K/mm3) 213 237 Disclaimer The following section includes nursing documentation that has been pulled in for pharmacy review. Patient's VTE score: 3 Patient's VTE Risk: LOW RISK Clinical trial participant? No VTE prophylaxis [id number] [id number] VTE prophylaxis ordered? Yes Type of prophylaxis/treatment: EDVIN at 0813
[2017-05-14 08:15] VITALS: BP 130/67
--- NOTE | 2017-05-14 08:39 | HISTORY AND PHYSICAL REPORT ---
Demographics: Admit date: 05/14/17 Chief complaint: shortness of breath PRIMARY DIAGNOSIS: COPD Allergies: Coded Allergies: No Known Allergies (09/27/15) History of present illness: History of present illness: 71 year old male with a history of HTN, CAD and COPD presented to the ED with increased shortness of breath and cough. Patient reports onset of cough and shortness of breath 2 weeks ago. He was seen by PCP and steroids were prescribed. Symptoms worsened this week and he went back to see his PCP. He was given more steroids and started on doxycycline 2 days ago. Patient states he became extremely short of breath last night and came to the ED for evaluation. Further reports productive cough and subjective temps. In the ED, CXR showed RUL pneumonia. He was also noted to have some mild leukocytosis. Patient was admitted to acute care for IV antibiotics, steroids and further evaluation. Past medical history: Family HX Diabetes No CAD Yes Hypertension Yes Hyperlipidemia Yes Cancer No TB No Immunization HX DT/Tetanus 5-10 Years Ago Flu 2016-SN Pneumonia Never Had TB Test in last year No General CAD? Yes Angina: No [place]: No Hypertension? No Hyperlipidemia? Yes CHF? No DVT? No PE? No COPD? Yes Asthma? Yes Anemia? No GERD? No Gastric ulcers? No GI Bleed? No Hernia? No Thyroid Problems? No Hypothyroidism? No CVA? No Seizures? Yes Diabetes? No Insulin Dependent: No Insulin Pump: No Home FSBS? No Renal Insuffiency? Yes UTI? No Stones? No BPH? No GB Disease: No Nephritic Syndrome? No Asplenia? No Hepatitis? No Sickle Cell Disease? No Arthritis? Yes Migraines? No Cataracts? No Glaucoma? No MRSA? No HIV? No TB? No Anxiety? No Depression? No Cancer? No More? Yes Additional hx: FACIAL FX 08/2015 Past Surgical HX Previous Surgery?Y CYST FROM BACK LT ANKLE CHEST TUBE STENTS X2 Current home meds: Active Scripts Prednisone (Prednisone 20MG) 20 MG PO DAILY #30 TAB Ref 5 Prov: 09/14/15 Reported Medications Atorvastatin Calcium (Atorvastatin) 80 MG PO QHS ALBUTEROL-IPRATROPIUM (Iprat-Albut 0.5-3(2.5) MG/3 Ml) 3 ML IH QID Albuterol (Albuterol-Hfa Inhaler) 1-2 PUFFS IH PRN PRN SOB #1 INH PHENYTOIN SODIUM EXTENDED (Phenytoin Sodium Extended) 400 MG PO QHS #120 CAPSULE Fluticasone Propionate (Flonase 50 Mcg Nasal [place]) 1 SPRAY NA DAILYP PRN CONGESTION #16 Carvedilol (Carvedilol 3.125MG) 3.125 MG PO BID Pantoprazole Sodium (Pantoprazole) 40 MG PO DAILY FLUTICASONE/SALMETEROL (Advair 500-50 Diskus) 1 PUFF IN BID Trazodone Hcl (Trazodone HCl) 50 MG PO QHS #30 ASPIRIN (Aspirin) 81 MG PO DAILY CLOPIDOGREL BISULFATE (Clopidogrel) 75 MG PO DAILY #30 Alendronate Sodium 70 MG PO WEEKLY #12 Doxycycline Hyclate 100 MG PO BID #20 Tiotropium [place] (Spiriva) 1 PUFF IH DAILY #30 Ferrous Sulfate (Ferrous Sulfate 325MG) 325 MG PO BID Social Hx: Smoking HX Tobacco No Type Cigarettes Packs/day N/A Alcohol Alcohol: No Hx of Drug Use Drug Use? No Patient's support system is good Review of systems: Constitutional fever. No: chills, diaphoresis, malaise (subjective). Eyes No: no symptoms reported. Ears, Nose, Mouth, Throat No ear pain, No ear discharge, No nose pain, No drooling/excessive saliva, nose discharge, No nose congestion, No mouth pain, No throat pain Respiratory see HPI. Cardiovascular No no symptoms reported Gastrointestinal/Abdominal No no symptoms reported Genitourinary No: no symptoms reported. Musculoskeletal No: no symptoms reported. Skin No: no symptoms reported. Neurological No: no symptoms reported. Psychiatric No: no symptoms reported. Exam: Lab data for last 24 hours: Laboratory Tests 05/14/17 06: Troponin I < 0.02 05/14/17 06: Sodium 141, Potassium 4.3, Chloride 104, Carbon Dioxide 30, BUN 15, Creatinine 0.9, Estimated Creat Clear 66, Estimated GFR (MDRD) 83, Glucose 132 H, Calcium 8.4 L, WBC 14.1 H, RBC 4.61, Hgb 12.3 L, Hct 38.0 L, MCV 82.4, RDW 17.0, Plt Count 213, MPV 6.8 L, Gran % 91.7 H, Gran # 13.0 H, Lymphocytes % 5.0 L, Monocytes % 3.1, Eosinophils % 0.1, Basophils % 0.0 L, Lymphocytes # 0.7, Monocytes # 0.4, Eosinophils # 0.0, Basophils # 0.0, PUBS MCHC 32.4, MCH 26.7 L 05/13/172238: Sodium 139, Potassium 3.7, Chloride 102, Carbon Dioxide 33 H, BUN 19 H, Creatinine 1.0, Estimated Creat Clear 63, Estimated GFR (MDRD) 74, Glucose 140 H, Calcium 8.8, Total Bilirubin 0.2, AST 11 L, ALT 22, Alkaline Phosphatase 138 H, Creatine Kinase 84, CK-MB (CK-2) Rel Index 3.5, CK and CKMB Interp 2.9, Troponin I < 0.02, Total Protein 7.1, Albumin 3.6, Globulin 3.5 H, Albumin/ Globulin Ratio 1.0 L, WBC 14.7 H, RBC 5.12, Hgb 13.4 L, Hct 42.3, MCV 82.7, RDW 17.0, Plt Count 237, MPV 6.4 L, Gran % 84.2 H, Gran # 13.0 H, Lymphocytes % 7.2 L, Monocytes % 6.4, Eosinophils % 1.9, Basophils % 0.3, Lymphocytes # 1.1 , Monocytes # 1.0, Eosinophils # 0.3, Basophils # 0.0, PUBS MCHC 31.7 L, MCH 26.2 L, Phenytoin 8.3 L 05/13/172234: ABG pH 7.39, ABG pCO2 (Temp Corrct 50.6 H, ABG pO2 (Temp Correct 87.7, ABG HCO3 30.2 H, ABG Total CO2 31.8 H, ABG O2 Sat (Calculated) 96.7, ABG Base Excess 5.3 H, Dave Test ACCEPTABLE Microbiology 05/14 800 SPUTUM: Sputum Culture - RECD 05/14 800 SPUTUM: Gram Stain - RECD Admission vital signs: 1ST Vital Signs Result Date Time Pulse Ox 98 05/13 2230 B/P 162/104 05/13 2230 Temp 97.8 05/13 2230 Pulse 94 05/13 2230 Resp 18 11/15 2230 O2 Delivery OXYGEN 05/14 0011 O2 Flow Rate 2 05/14 0011 Exam General appearance: normal appearance, active, no acute distress Eyes: anicteric ENT: mucous membranes moist Neck: normal inspection, non-tender, no JVD Cardiovascular: regular rate & rhythm, no murmur, normal peripheral pulses, no peripheral edema Respiratory: wheezes throughout all lung john, air flow diminished ABD: non-distended, normal bowel sounds, no rebound, soft, no tenderness, no guarding, no organomegaly Genitourinary: no dysuria, no hematuria Extremities: moves all Musculoskeletal: equal muscle strength, sensation intact Skin: dry, intact, normal color Neuro: alert, no deficit, normal mood/affect, oriented, speech clear Plan: Problem List 1. COPD (chronic obstructive pulmonary disease) with acute bronchitis 2. Pneumonia Plan: Continue IV antibiotics, steroids and nebulizer treatments. Obtain sputum culture today. at 0842
[2017-05-14 09:22] LABS: NEUTROPHILS 94 % (42-76)
[2017-05-14 16:17] VITALS: BP 125/78
[2017-05-14 20:09] VITALS: BP 113/71
[2017-05-15 04:32] VITALS: BP 112/66
[2017-05-15 08:00] VITALS: BP 113/71
--- NOTE | 2017-05-15 08:21 | ACUTE CARE PROGRESS NOTE (QUA) ---
Progress Notes Subjective Date 05/15/17 Time 0820 Note Overall feel somewhat better, continues to cough, continues to feel somewhat short of air with movement around his hospital room. Lungs have rhonchi in both lung bases, crackles in the RIGHT upper lung. Heart rate regular, abdomen soft, no edema, patient is alert and oriented 3. Objective Findings Last VS-Temp:97.5 B/P:113/71 Pulse:91 Resp:22 SaO2:98 OXYGEN Last weight lbs:137 oz:6 K.313 Method:Bed Scales Assessment/Plan Problem List 1. COPD (chronic obstructive pulmonary disease) with acute bronchitis 2. Pneumonia Patient condition Improving, await sputum culture for definitive antibiotic choice This inpt stay is expected to cross 2 MNs from start of care Yes at 0821
[2017-05-15 10:21] VITALS: BP 113/71
[2017-05-15 19:44] VITALS: BP 108/66
[2017-05-15 20:10] VITALS: BP 108/66
[2017-05-16] VITALS (7 sets, daily range): BP systolic 92–121; BP diastolic 57–80
--- NOTE | 2017-05-16 07:37 | ACUTE CARE PROGRESS NOTE (QUA) ---
Progress Notes Subjective Date 05/16/17 Time 0736 Note Overall feels a little better, coughing, poor sputum production. Feels a little better but short of air with exertion continues. Minimal rhonchi in both lung john, heart rate regular, abdomen soft, eating well, no edema Objective Findings Last VS-Temp:97.9 B/P:92/57 Pulse:75 Resp:16 SaO2:95 OXYGEN Last weight lbs:137 oz:6 K.313 Method:Bed Scales Assessment/Plan Problem List 1. COPD (chronic obstructive pulmonary disease) with acute bronchitis 2. Pneumonia Patient condition Improving Plan: continue current care, await culture results. Check labs today. Possible discharge tomorrow? This inpt stay is expected to cross 2 MNs from start of care Yes at 0737
[2017-05-16 08:16] LABS: HEMOGLOBIN 12.4 g/dL (14.1-18.0); LYMPH # 0.4 K/mm3 (0.7-4.5); LYMPH % 3.1 % (10-50)
[2017-05-16 10:05] LABS: NEUTROPHILS 86 % (42-76)
[2017-05-17 04:31] VITALS: BP 123/77
[2017-05-17 07:44] VITALS: BP 131/76
[2017-05-17 07:48] VITALS: BP 131/76
--- NOTE | 2017-05-17 08:16 | ACUTE CARE PROGRESS NOTE (QUA) ---
Progress Notes Subjective Date 05/17/17 Time 0815 Note Patient feels about the same, is ambulating about the room, eating well, continues to feel somewhat short of air and afflicted with a fairly productive cough. Lungs have scattered rhonchi throughout, better air movement than on admission. Heart rate regular. No edema. Abdomen soft. Patient is alert and pleasant. Objective Findings Last VS-Temp:97.9 B/P:131/76 Pulse:84 Resp:22 SaO2:96 OXYGEN Last weight lbs:137 oz:6 K.313 Method:Bed Scales Assessment/Plan Problem List 1. COPD (chronic obstructive pulmonary disease) with acute bronchitis 2. Pneumonia Patient condition Stable, sputum cultures show Pseudomonas and Klebsiella. We will change IV therapy to Zosyn and tobramycin, patient will need at least 1 more week of IV antibiotics given this culture result. Plan for swing bed transfer tomorrow. This inpt stay is expected to cross 2 MNs from start of care Yes at 0816
--- NOTE | 2017-05-17 14:04 | CONSULT NOTE ---
Pharmacokinetic Consult Date of consult: 05/17/17 Time of consult: 1402 Referring provider: DR. CHURCHILL Reason for consult: TOBRAMYCIN LEVELS Allergies: Coded Allergies: No Known Allergies (09/27/15) Home Medications: Active Scripts Prednisone (Prednisone 20MG) 20 MG PO DAILY #30 TAB Ref 5 Prov: 09/14/15 Reported Medications Atorvastatin Calcium (Atorvastatin) 80 MG PO QHS ALBUTEROL-IPRATROPIUM (Iprat-Albut 0.5-3(2.5) MG/3 Ml) 3 ML IH QID Albuterol (Albuterol-Hfa Inhaler) 1-2 PUFFS IH PRN PRN SOB #1 INH PHENYTOIN SODIUM EXTENDED (Phenytoin Sodium Extended) 400 MG PO QHS #120 CAPSULE Fluticasone Propionate (Flonase 50 Mcg Nasal [place]) 1 SPRAY NA DAILYP PRN CONGESTION #16 Carvedilol (Carvedilol 3.125MG) 3.125 MG PO BID Pantoprazole Sodium (Pantoprazole) 40 MG PO DAILY FLUTICASONE/SALMETEROL (Advair 500-50 Diskus) 1 PUFF IN BID Trazodone Hcl (Trazodone HCl) 50 MG PO QHS #30 ASPIRIN (Aspirin) 81 MG PO DAILY CLOPIDOGREL BISULFATE (Clopidogrel) 75 MG PO DAILY #30 Alendronate Sodium 70 MG PO WEEKLY #12 Doxycycline Hyclate 100 MG PO BID #20 Tiotropium [place] (Spiriva) 1 PUFF IH DAILY #30 Ferrous Sulfate (Ferrous Sulfate 325MG) 325 MG PO BID Height (feet): 5 Height (inches): 6.00 Medical History: CAD? Yes Angina: No [place]: No Hypertension? No Hyperlipidemia? Yes CHF? No DVT? No PE? No COPD? Yes Asthma? Yes Anemia? No GERD? No Gastric ulcers? No GI Bleed? No Hernia? No Thyroid Problems? No Hypothyroidism? No CVA? No Seizures? Yes Diabetes? No Insulin Dependent: No Insulin Pump: No Home FSBS? No Renal Insuffiency? Yes UTI? No Stones? No BPH? No GB Disease: No Nephritic Syndrome? No Asplenia? No Hepatitis? No Sickle Cell Disease? No Arthritis? Yes Migraines? No Cataracts? No Glaucoma? No MRSA? No HIV? No TB? No Anxiety? No Depression? No Cancer? No More? Yes Additional hx: FACIAL FX 08/2015 Labs: SRCR=1.1 Problem List: 1. Pneumonia Acute Plan: BASED ON PATIENT FACTORS, RECOMMEND TOBRAMYCIN 320 MG IV Q24H. WILL OBTAIN LEVELS AT 4 AND 12 HOURS POST INFUSION. PHARMACY WILL FOLLOW DAILY AND ADJUST APPROPRIATE. at 4509
[2017-05-17 15:51] VITALS: BP 135/71
[2017-05-17 20:14] VITALS: BP 129/83
[2017-05-17 21:00] VITALS: BP 129/83
[2017-05-18 04:08] VITALS: BP 140/76
[2017-05-18 06:48] LABS: HEMOGLOBIN 11.6 g/dL (14.1-18.0); LYMPH # 0.8 K/mm3 (0.7-4.5); LYMPH % 8.3 % (10-50)
[2017-05-18 08:00] VITALS: BP 134/87
--- NOTE | 2017-05-18 08:05 | ACUTE CARE PROGRESS NOTE (QUA) ---
Progress Notes Subjective Date 05/18/17 Time 0803 Note Overall patient is doing fairly well. Still with some cough, minimal shortness of air when he exerts himself. Lungs have rhonchi bilaterally, abdomen soft, no edema noted. Objective Findings Last VS-Temp:97.7 B/P:140/76 Pulse:77 Resp:18 SaO2:94 OXYGEN Last weight lbs:137 oz:6 K.313 Method:Bed Scales Assessment/Plan Problem List 1. COPD (chronic obstructive pulmonary disease) with acute bronchitis 2. Pneumonia 3. Pseudomonas pneumonia Patient condition Improving Plan: continue current care, plan to transfer to swing bed for 7 more days of IV antibiotics. Tolerated change to antipseudomonal coverage well yesterday. This inpt stay is expected to cross 2 MNs from start of care Yes at 0804
--- NOTE | 2017-05-18 08:15 | DISCHARGE SUMMARY STANDARD ---
Demographics Admit date: 05/14/17 Discharge date: 05/18/17 History of present illness History of present illness 71 year old male with a history of HTN, CAD and COPD presented to the ED with increased shortness of breath and cough. Patient reports onset of cough and shortness of breath 2 weeks ago. He was seen by PCP and steroids were prescribed. Symptoms worsened this week and he went back to see his PCP. He was given more steroids and started on doxycycline 2 days ago. Patient states he became extremely short of breath last night and came to the ED for evaluation. Further reports productive cough and subjective temps. In the ED, CXR showed RUL pneumonia. He was also noted to have some mild leukocytosis. Patient was admitted to acute care for IV antibiotics, steroids and further evaluation. Hospital Course Hospital Course: Patient was admitted to hospital, standard IV antibiotic for started and patient responded somewhat to these but continue to have lots of shortness of air especially with exertion and some sputum production. Cultures returned yesterday morning showing Pseudomonas and Klebsiella species. Antibiotics were changed to Zosyn and gentamicin. Patient's tolerated the first dose of these. Given his Pseudomonas pneumonia status and need for double coverage for IV antibiotics patient will be transferred to swing bed today for at least 7 and possibly 10 days of IV antibiotics. Admission status to swing bed: Mental status is good, rehab potential good, prognosis is good. Discharge diagnoses Problem List 1. COPD (chronic obstructive pulmonary disease) with acute bronchitis 2. Pneumonia 3. Pseudomonas pneumonia Medications Medications: Discharge meds are as noted. Follow up Follow up in office in: 1 DAY with: Wilian Miller MD at 0815
--- NOTE | 2017-05-18 08:58 | CONSULT NOTE ---
Pharmacokinetic Consult Date of consult: 05/18/17 Time of consult: 854 Referring provider: DR. CHURCHILL Reason for consult: TOBRAMYCIN LEVELS Allergies: Coded Allergies: No Known Allergies (09/27/15) Home Medications: Active Scripts Prednisone (Prednisone 20MG) 20 MG PO DAILY #30 TAB Ref 5 Prov: 09/14/15 Reported Medications Atorvastatin Calcium (Atorvastatin) 80 MG PO QHS ALBUTEROL-IPRATROPIUM (Iprat-Albut 0.5-3(2.5) MG/3 Ml) 3 ML IH QID Albuterol (Albuterol-Hfa Inhaler) 1-2 PUFFS IH PRN PRN SOB #1 INH PHENYTOIN SODIUM EXTENDED (Phenytoin Sodium Extended) 400 MG PO QHS #120 CAPSULE Fluticasone Propionate (Flonase 50 Mcg Nasal [place]) 1 SPRAY NA DAILYP PRN CONGESTION #16 Carvedilol (Carvedilol 3.125MG) 3.125 MG PO BID Pantoprazole Sodium (Pantoprazole) 40 MG PO DAILY FLUTICASONE/SALMETEROL (Advair 500-50 Diskus) 1 PUFF IN BID Trazodone Hcl (Trazodone HCl) 50 MG PO QHS #30 ASPIRIN (Aspirin) 81 MG PO DAILY CLOPIDOGREL BISULFATE (Clopidogrel) 75 MG PO DAILY #30 Alendronate Sodium 70 MG PO WEEKLY #12 Doxycycline Hyclate 100 MG PO BID #20 Tiotropium [place] (Spiriva) 1 PUFF IH DAILY #30 Ferrous Sulfate (Ferrous Sulfate 325MG) 325 MG PO BID Height (feet): 5 Height (inches): 6.00 Medical History: CAD? Yes Angina: No [place]: No Hypertension? No Hyperlipidemia? Yes CHF? No DVT? No PE? No COPD? Yes Asthma? Yes Anemia? No GERD? No Gastric ulcers? No GI Bleed? No Hernia? No Thyroid Problems? No Hypothyroidism? No CVA? No Seizures? Yes Diabetes? No Insulin Dependent: No Insulin Pump: No Home FSBS? No Renal Insuffiency? Yes UTI? No Stones? No BPH? No GB Disease: No Nephritic Syndrome? No Asplenia? No Hepatitis? No Sickle Cell Disease? No Arthritis? Yes Migraines? No Cataracts? No Glaucoma? No MRSA? No HIV? No TB? No Anxiety? No Depression? No Cancer? No More? Yes Additional hx: FACIAL FX 08/2015 Labs: Laboratory Tests 05/18/17 0625: Sodium 143, Potassium 4.1, Chloride 105, Carbon Dioxide 30, BUN 21 H, Creatinine 1.0, Estimated Creat Clear 60, Estimated GFR (MDRD) 74, Glucose 185 H, Calcium 8.7, WBC 10.0, RBC 4.44 L, Hgb 11.6 L, Hct 36.9 L, MCV 83.0, RDW 16.8, Plt Count 237, MPV 6.6 L, Gran % 86.1 H, Gran # 8.6 H, Lymphocytes % 8.3 L, Monocytes % 5.3, Eosinophils % 0.2, Basophils % 0.1, Lymphocytes # 0.8, Monocytes # 0.5, Eosinophils # 0.0, Basophils # 0.0, PUBS MCHC 31.3 L, MCH 26.0 L 05/17/17 2330: Random Tobramycin 1.0 05/17/17 1610: Random Tobramycin 4.1 Problem List: 1. Pseudomonas pneumonia Plan: 4.5-HOUR POST-INFUSION: 4.1 MCG/ML CALCULATED PEAK: 7.92 MCG/ML 12-HOUR POST-INFUSION: 1.0 MCG/ML CALCULATED TROUGH: 0.10 MCG/ML BASED ON TOBRAMYCIN LEVELS AND PATIENT FACTORS, RECOMMEND INCREASING DOSE TO TOBRAMYCIN 440 MG (7 MG/KG/DBW) IV Q24H. PHARMACY WILL CONTINUE TO MONITOR DAILY AND ADJUST APPROPRIATE. at 0858
[2017-05-18 09:33] LABS: NEUTROPHILS 86 % (42-76)
== END 2017-05-18 09:51 | disposition swing bed (61) | DRG 178 ==
LOC: ER 22:24 → 2ND 23:22 → ER 23:22 → 2ND 23:22
PROVIDERS: Emergency Medicine; Internal Medicine Adolescent Medicine
DX: J15.1 Pneumonia due to Pseudomonas (principal); J44.0 Chronic obstructive pulmonary disease with (acute) lower respiratory infection; Z99.81 Dependence on supplemental oxygen; J44.9 Chronic obstructive pulmonary disease, unspecified; J20.9 Acute bronchitis, unspecified; I10 Essential (primary) hypertension; I25.10 Atherosclerotic heart disease of native coronary artery without angina pectoris
CPT/HCPCS: C1751; J0456; J2543

== ENCOUNTER 2017-05-18 08:20 | Inpatient (IN) | payer MEDICARE, BC ==
[~2017-05-18] VITALS: Ht 167.6 cm; Wt 61.2 kg
[~2017-05-18 08:20] MED LIST changes: +DOXYCYCLINE HY100 MG PO; +FERROUS SULFAT325 M2 PO; +SPIRIVA HA1 PUFF/INH IH
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
--- OUTSIDE RECORDS SUMMARY | 2017-05-18 08:26 | External Medical Summary Rpt | CCD ---
Author Author [employer] Organization [employer] Address Unknown Phone Unavailable Purpose Continuity of Care Document - through 2016
--- OUTSIDE RECORDS SUMMARY | 2017-05-18 08:26 | External Medical Summary Rpt | CCD ---
Author Author , BONITA Organization [employer]ITA Address Unknown Phone [email or web address] Immunization Name Date Rout CVX Reac Dose Comm Prov Is Faci e tion ent ider Refu lity Give sed n Infl 10-0 141 999 Hist [facility] No [facility] uenz 1-20 oric 1 1 a, 16 al Seas Info onal rmat ion - Sour ce Unsp ecif ied Infl 01-0 140 999 Hist [facility] No [facility] uenz 1-20 oric 1 1 a, 15 al P-Fr Info ee rmat ion - Sour ce Unsp ecif ied
--- OUTSIDE RECORDS SUMMARY | 2017-05-18 08:26 | External Medical Summary Rpt | CCD ---
Author Author , BOINTA Organization [employer] Address Unknown Phone [email or web address] Immunization Name Date Rout CVX Reac Dose [...]
--- OUTSIDE RECORDS SUMMARY | 2017-05-18 08:27 | External Medical Summary Rpt ---
Author Author [employer], [employer] Organization [employer] Address Unknown Phone Unavailable Results Basic metabolic panel in Blood Observa Value Referen Units Interpr Notes Date tion ce etation Range Urea 7 - 18 mg/dL High No May 18 nitrogen informati 2016 6:25 [Mass/vol on in AM ume] in source Serum or data Plasma Calcium 8.5 - mg/dL Normal No May 18 [Mass/vol 10.1 informati 2016 6:25 ume] in on in AM Serum or source Plasma data Chloride 98 - 107 mmoL/L Normal No May 18 [Moles/vo informati 2016 6:25 lume] in on in AM Serum or source Plasma data Carbon 21.0 - mmoL/L Normal No May 18 dioxide, 32.0 informati 2016 6:25 total on in AM [Moles/vo source lume] in data Serum or Plasma Creatinin 0.70 - mg/dL Normal No May 18 e 1.30 informati 2016 6:25 [Mass/vol on in AM ume] in source Serum or data Plasma Creatinin 50 - 200 ML/MIN Normal No May 18 e renal informati 2017 6:25 clearance on in AM source predicted data by Cockcroft -Gault formula Estimated >60 ML/MIN No REFERENCE May 18 informati RANGE: 2017 6:25 glomerula on in >60 AM r source ML/MIN/1. filtratio data 73 SQUARE n rate METERSIf (GF this patient is -A merican, then multiply theresult by 1.210. Glucose 74 - 106 mg/dL High No May 18 [Mass/vol informati 2016 6:25 ume] in on in AM Serum or source Plasma data Potassium 3.5 - 5.1 mmoL/L Normal No May 18 informati 2016 6:25 [Moles/vo on in AM lume] in source Serum or data Plasma Sodium 136 - 145 mmoL/L Normal No May 18 [Moles/vo informati 2016 6:25 lume] in on in AM Serum or source Plasma data Tobramycin [Mass/volume] in Serum or Plasma Observa Value Referen Units Interpr Notes Date tion ce etation Range COMMENTS TO VICE CHAIRMAN: DO NOT NEED TO CALL PHARMACIST PROCESS DEVELOPMENT ENGINEER WITH LEVEL DATE OF LAST DOSE: 05/17/17 TIME OF LAST DOSE: 1030 Tobramyci No ug/mL No No May 17 n informati informati informati 2016 [Mass/vol on in on in on in 11:30 PM ume] in source source source Serum or data data data Plasma Tobramycin [Mass/volume] in Serum or Plasma Observa Value Referen Units Interpr Notes Date tion ce etation Range COMMENTS TO VICE CHAIRMAN: DO NOT NEED TO CALL PHARMACIST PROCESS DEVELOPMENT ENGINEER WITH LEVEL DATE OF LAST DOSE: 05/17/17 TIME OF LAST DOSE: 1030 Tobramyci No ug/mL No No May 17 n informati informati informati 2017 4:10 [Mass/vol on in on in on in PM ume] in source source source Serum or data data data Plasma CBC W Auto Differential panel in Blood Observa Value Referen Units Interpr Notes Date tion ce etation Range Basophils 0 - 0.2 K/MM3 Normal No May 16 inform2016 7:55 [#/volume on in AM ] in source Blood by data Automated count Basophils 0.1 - 2.0 % Low No May 16 informati 2017 7:55 leukocyte on in AM s in source Blood by data Automated count Eosinophi 0.0 - 0.4 K/mm3 Normal No May 16 ls informati 2016 7:55 [#/volume on in AM ] in source Blood by data Automated count Eosinophi 0.1 - % Normal No May 16 ls/100 12.0 informati 2016 7:55 leukocyte on in AM s in source Blood by data Automated count Granulocy 1.3 - 8.0 K/mm3 High No May 16 doug informati 2016 7:55 [#/volume on in AM ] in source Blood by data Automated count Granulocy 37.0 - % High No May 16 doug/100 80.0 informati 2016 7:55 leukocyte on in AM s in source Blood by data Automated count Hematocri 42.0 - % Low No May 16 t [Volume 52.0 informati 2016 7:55 on in AM Fraction] source of Blood data Hemoglobi 14.1 - g/dL Low No Nov 18 n 18.0 informati 2017 7:55 [Mass/vol on in AM ume] in source Blood data Lymphocyt 0.7 - 4.5 K/mm3 Low No Apr 18 es informati 2017 7:55 [#/volume on in AM ] in source Unspecifi data ed specimen by Automated count Lymphocyt 10 - 50 % Low No Apr 18 es informati 2016 7:55 [#/volume on in AM ] in source Unspecifi data ed specimen by Automated count Erythrocy 27 - 31.2 pg Low No May 16 te mean informati 2017 7:55 corpuscul on in AM ar source hemoglobi data n [Entitic mass] Erythrocy 31.8 - g/dl Low No May 16 te mean 35.4 informati 2017 7:55 corpuscul on in AM ar source hemoglobi data n concentra tion [Mass/vol ume] by Automated count Erythrocy 82.2 - fl Normal No May 16 te mean 97.8 informati 2017 7:55 corpuscul on in AM ar volume source [Entitic data volume] by Automated count Monocytes 0.1 - 1.0 K/mm3 Normal No May 16 informati 2016 7:55 [#/volume on in AM ] in source Blood by data Automated count Monocytes 1.7 - 9.3 % Normal No Apr 18 /100 informati 2017 7:55 leukocyte on in AM s in source Blood by data Automated count Platelet 7.4 - fl Low No May 16 mean 10.4 informati 2017 7:55 volume on in AM [Entitic source volume] data in Blood by Automated count Platelets 142 - 424 K/mm3 Normal No May 16 informati 2017 7:55 [#/volume on in AM ] in source Blood data Erythrocy 4.6 - 6.2 M/mm3 Normal No Apr 18 doug informati 2017 7:55 [#/volume on in AM ] in source Amniotic data fluid Erythrocy 11.5 - % Normal No May 16 te 17.5 informati 2017 7:55 distribut on in AM ion width source [Entitic data volume] by Automated count Leukocyte 4.8 - K/MM3 High No Apr 18 s 10.8 informati 2016 7:55 [#/volume on in AM ] in source Blood data Differential panel, method unspecified - Observa Value Referen Units Interpr Notes Date tion ce etation Range Helmet 1+ No No No No May 16 cells informa informa informa informa 2016 [Presen tion in tion in tion in tion in 7:55 AM ce] in source source source source Blood data data data data by Light microsc opy LYMPH 11 10 - 50 % Normal No May 16 informa 2016 tion in 7:55 AM source data Monocytes 2 - 9 % Normal No Apr 18 /100 informati 2017 7:55 leukocyte on in AM s in source Blood by data Automated count Ovalocy 1+ No No No No May 16 doug informa informa informa informa 2016 [Presen tion in tion in tion in tion in 7:55 AM ce] in source source source source Blood data data data data by Light microsc opy Platele NORMAL No No No No May 16 ts informa informa informa informa 2016 [Presen tion in tion in tion in tion in 7:55 AM ce] in source source source source Blood data data data data by Light microsc opy Neutrophi 42 - 76 % High No May 16 ls informati 2016 7:55 [#/volume on in AM ] in source Blood by data Automated count Cells No #CELLS No No May 16 Counted informati informati informati 2017 7:55 Total [#] on in on in on in AM in Blood source source source data data data Basic metabolic panel in Blood Observa Value Referen Units Interpr Notes Date tion ce etation Range Urea 7 - 18 mg/dL High No May 16 nitrogen informati 2017 7:55 [Mass/vol on in AM ume] in source Serum or data Plasma Calcium 8.5 - mg/dL Normal No May 16 [Mass/vol 10.1 informati 2016 7:55 ume] in on in AM Serum or source Plasma data Chloride 98 - 107 mmoL/L Normal No May 16 [Moles/vo informati 2016 7:55 lume] in on in AM Serum or source Plasma data Carbon 21.0 - mmoL/L Normal No May 16 dioxide, 32.0 informati 2016 7:55 total on in AM [Moles/vo source lume] in data Serum or Plasma Creatinin 0.70 - mg/dL No No May 16 e 1.30 informati informati 2017 7:55 [Mass/vol on in on in AM ume] in source source Serum or data data Plasma Creatinin 50 - 200 ML/MIN No No May 16 e renal informati informati 2017 7:55 clearance on in on in AM source source predicted data data by Cockcroft -Gault formula Estimated >60 ML/MIN No REFERENCE May 16 informati RANGE: 2017 7:55 glomerula on in >60 AM r source ML/MIN/1. filtratio data 73 SQUARE n rate METERSIf (GF this patient is -A merican, then multiply theresult by 1.210. Glucose 74 - 106 mg/dL High No May 16 [Mass/vol informati 2016 7:55 ume] in on in AM Serum or source Plasma data Potassium 3.5 - 5.1 mmoL/L Normal No May 16 informati 2016 7:55 [Moles/vo on in AM lume] in source Serum or data Plasma Sodium 136 - 145 mmoL/L Normal No May 16 [Moles/vo informati 2016 7:55 lume] in on in AM Serum or source Plasma data CBC W Auto Differential panel in Blood Observa Value Referen Units Interpr Notes Date tion ce etation Range Basophils 0 - 0.2 K/MM3 Normal No May 14 informati 2016 6:12 [#/volume on in AM ] in source Blood by data Automated count Basophils 0.1 - 2.0 % Low No Apr 16 /100 informati 2017 6:12 leukocyte on in AM s in source Blood by data Automated count Eosinophi 0.0 - 0.4 K/mm3 Normal No May 14 ls informati 2016 6:12 [#/volume on in AM ] in source Blood by data Automated count Eosinophi 0.1 - % Normal No May 14 ls/100 12.0 informati 2016 6:12 leukocyte on in AM s in source Blood by data Automated count Granulocy 1.3 - 8.0 K/mm3 High No May 14 doug informati 2016 6:12 [#/volume on in AM ] in source Blood by data Automated count Granulocy 37.0 - % High No May 14 doug/100 80.0 informati 2016 6:12 leukocyte on in AM s in source Blood by data Automated count Hematocri 42.0 - % Low No May 14 t [Volume 52.0 informati 2017 6:12 on in AM Fraction] source of Blood data Hemoglobi 14.1 - g/dL Low No May 14 n 18.0 informati 2017 6:12 [Mass/vol on in AM ume] in source Blood data Lymphocyt 0.7 - 4.5 K/mm3 Normal No May 14 es informati 2016 6:12 [#/volume on in AM ] in source Unspecifi data ed specimen by Automated count Lymphocyt 10 - 50 % Low No May 14 es informati 2016 6:12 [#/volume on in AM ] in source Unspecifi data ed specimen by Automated count Erythrocy 27 - 31.2 pg Low No May 14 te mean informati 2016 6:12 corpuscul on in AM ar source hemoglobi data n [Entitic mass] Erythrocy 31.8 - g/dl Normal No May 14 te mean 35.4 informati 2017 6:12 corpuscul on in AM ar source hemoglobi data n concentra tion [Mass/vol ume] by Automated count Erythrocy 82.2 - fl Normal No May 14 te mean 97.8 informati 2016 6:12 corpuscul on in AM ar volume source [Entitic data volume] by Automated count Monocytes 0.1 - 1.0 K/mm3 Normal No May 14 informati 2016 6:12 [#/volume on in AM ] in source Blood by data Automated count Monocytes 1.7 - 9.3 % Normal No Apr 16 /100 informati 2017 6:12 leukocyte on in AM s in source Blood by data Automated count Platelet 7.4 - fl Low No May 14 mean 10.4 informati 2017 6:12 volume on in AM [Entitic source volume] data in Blood by Automated count Platelets 142 - 424 K/mm3 Normal No May 14 informati 2016 6:12 [#/volume on in AM ] in source Blood data Erythrocy 4.6 - 6.2 M/mm3 Normal No Apr 16 doug informati 2016 6:12 [#/volume on in AM ] in source Amniotic data fluid Erythrocy 11.5 - % Normal May 14 te 17.5 informati 2017 6:12 distribut on in AM ion width source [Entitic data volume] by Automated count Leukocyte 4.8 - K/MM3 High No May 14 s 10.8 informati 2016 6:12 [#/volume on in AM ] in source Blood data Differential panel, method unspecified - Observa Value Referen Units Interpr Notes Date tion ce etation Range Anisocy 1+ No No No No May 14 tosis informa informa informa informa 2016 [Presen tion in tion in tion in tion in 6:12 AM ce] in source source source source Blood data data data data Hypochr 1+ No No No No May 14 omia informa informa informa informa 2016 [Presen tion in tion in tion in tion in 6:12 AM ce] in source source source source Blood data data data data LYMPH 3 10 - 50 % Low No May 142016 tion in 6:12 AM source data Monocytes 2 - 9 % Normal No May 14 /100 informati 2017 6:12 leukocyte on in AM s in source Blood by data Automated count Platele NORMAL No No No No May 14 ts informa informa informa informa 2016 [Presen tion in tion in tion in tion in 6:12 AM ce] in source source source source Blood data data data data by Light microsc opy Neutrophi 42 - 76 % High No May 14 ls informati 2016 6:12 [#/volume on in AM ] in source Blood by data Automated count Cells No #CELLS No No May 14 Counted informati informati informati 2017 6:12 Total [#] on in on in on in AM in Blood source source source data data data Basic metabolic panel in Blood Observa Value Referen Units Interpr Notes Date tion ce etation Range Urea 7 - 18 mg/dL Normal No May 14 nitrogen informati 2016 6:12 [Mass/vol on in AM ume] in source Serum or data Plasma Calcium 8.5 - mg/dL Low No May 14 [Mass/vol 10.1 informati 2016 6:12 ume] in on in AM Serum or source Plasma data Chloride 98 - 107 mmoL/L Normal No May 14 [Moles/vo informati 2016 6:12 lume] in on in AM Serum or source Plasma data Carbon 21.0 - mmoL/L Normal No May 14 dioxide, 32.0 informati 2016 6:12 total on in AM [Moles/vo source lume] in data Serum or Plasma Creatinin 0.70 - mg/dL Normal No May 14 e 1.30 informati 2017 6:12 [Mass/vol on in AM ume] in source Serum or data Plasma Creatinin 50 - 200 ML/MIN Normal No May 14 e renal informati 2017 6:12 clearance on in AM source predicted data by Cockcroft -Gault formula Estimated >60 ML/MIN No REFERENCE May 14 informati RANGE: 2017 6:12 glomerula on in >60 AM r source ML/MIN/1. filtratio data 73 SQUARE n rate METERSIf (GF this patient is -A merican, then multiply theresult by 1.210. Glucose 74 - 106 mg/dL High No May 14 [Mass/vol 2016 6:12 ume] in on in AM Serum or source Plasma data Potassium 3.5 - 5.1 mmoL/L Normal No May 142016 6:12 [Moles/vo on in AM lume] in source Serum or data Plasma Sodium 136 - 145 mmoL/L Normal No May 14 [Moles/vo 2016 6:12 lume] in on in AM Serum or source Plasma data Phenytoin [Mass/volume] in Serum or Plasma Observa Value Referen Units Interpr Notes Date tion ce etation Range Phenytoin 10 - 20 ug/ml Low No May 132016 [Mass/vol on in 10:39 PM ume] in source Serum or data Plasma CBC W Auto Differential panel in Blood Observa Value Referen Units Interpr Notes Date tion ce etation Range Basophils 0 - 0.2 K/MM3 Normal No May 132016 [#/volume on in 10:39 PM ] in source Blood by data Automated count Basophils 0.1 - 2.0 % Normal No May 132016 leukocyte on in 10:39 PM s in source Blood by data Automated count Eosinophi 0.0 - 0.4 K/mm3 Normal May 13 ls 2016 [#/volume on in 10:39 PM ] in source Blood by data Automated count Eosinophi 0.1 - % Normal May 13 ls/100 12.0 2016 leukocyte on in 10:39 PM s in source Blood by data Automated count Granulocy 1.3 - 8.0 K/mm3 High No May 13 doug 2016 [#/volume on in 10:39 PM ] in source Blood by data Automated count Granulocy 37.0 - % High No May 13 doug/100 80.0 2016 leukocyte on in 10:39 PM s in source Blood by data Automated count Hematocri 42.0 - % Normal May 13 t [Volume 52.0 2016 on in 10:39 PM Fraction] source of Blood data Hemoglobi 14.1 - g/dL Low No May 13 n 18.0 2016 [Mass/vol on in 10:39 PM ume] in source Blood data Lymphocyt 0.7 - 4.5 K/mm3 Normal No May 13 es 2016 [#/volume on in 10:39 PM ] in source Unspecifi data ed specimen by Automated count Lymphocyt 10 - 50 % Low No May 13 es 2016 [#/volume on in 10:39 PM ] in source Unspecifi data ed specimen by Automated count Erythrocy 27 - 31.2 pg Low No May 13 te mean 2016 corpuscul on in 10:39 PM ar source hemoglobi data n [Entitic mass] Erythrocy 31.8 - g/dl Low May 13 te mean 35.4 2016 corpuscul on in 10:39 PM ar source hemoglobi data n concentra tion [Mass/vol ume] by Automated count Erythrocy 82.2 - fl Normal No May 13 te mean 97.8 2016 corpuscul on in 10:39 PM ar volume source [Entitic data volume] by Automated count Monocytes 0.1 - 1.0 K/mm3 Normal No May 132016 [#/volume on in 10:39 PM ] in source Blood by data Automated count Monocytes 1.7 - 9.3 % Normal No May 13 /100 2016 leukocyte on in 10:39 PM s in source Blood by data Automated count Platelet 7.4 - fl Low May 13 mean 10.4 2016 volume on in 10:39 PM [Entitic source volume] data in Blood by Automated count Platelets 142 - 424 K/mm3 Normal No May 132016 [#/volume on in 10:39 PM ] in source Blood data Erythrocy 4.6 - 6.2 M/mm3 Normal No May 13 doug 2016 [#/volume on in 10:39 PM ] in source Amniotic data fluid Erythrocy 11.5 - % No May 13 te 17.5 informati 2016 distribut on in on in 10:39 PM ion width source source [Entitic data data volume] by Automated count Leukocyte 4.8 - K/MM3 High No May 13 s 10.8 2016 [#/volume on in 10:39 PM ] in source Blood data Gas panel in Arterial blood Observa Value Referen Units Interpr Notes Date tion ce etation Range Base -2.4-+2.3 MMOL/L High No May 13 excess in 2016 Arterial on in 10:35 PM blood source data Arteria ACCEPTA No No No No Apr 15 l BLE informa informa informa informa 2017 patency tion in tion in tion in tion in 10:35 Wrist source source source source PM artery data data data data --pre arteria l punctur e Bicarbona 22.0 - MMOL/L High No May 13 te 26.0 2016 [Moles/vo on in 10:35 PM lume] in source Arterial data blood Oxygen No No No No May 13 content informati informati informati informati 2017 in on in on in on in on in 10:35 PM Arterial source source source source blood data data data data Carbon 35.0 - MMHG High May 13 dioxide 45.0 2016 [Partial CRITICAL 10:35 PM pressure] RESULTS in Arterial RESU blood LTS CALLED TO: RESULTS TAKEN STAT TO DR ESTRELLA [address] franci pH of 7.35 - MMOL/L Normal No May 13 Arterial 7.45 2016 blood on in 10:35 PM source data Oxygen 80 - 100 MMHG Normal No May 13 [Partial informati 2017 pressure] on in 10:35 PM in source Arterial data blood Oxygen 90 - 100 % Normal No May 13 saturatio 2017 n.calcula on in 10:35 PM deion from source oxygen data partial pressure in Arterial blood Carbon 23 - 27 MMOL/L High No May 13 dioxide, informati 2016 total on in 10:35 PM [Moles/vo source lume] in data Arterial blood
--- OUTSIDE RECORDS SUMMARY | 2017-05-18 08:27 | External Medical Summary Rpt ---
[...] Date tion ce etation Range COMMENTS TO ENTERPRISE SYSTEMS ENGINEER: DO NOT NEED TO CALL PHARMACIST RADIOLOGY SCHEDULER WITH LEVEL DATE OF LAST DOSE: 05/17/17 TIME OF LAST DOSE: 1030 Tobramyci No ug/mL No No May 17 n informati informati informati 2016 [Mass/vol on in on in on in 11:30 PM ume] in source source source Serum or data data data Plasma Tobramycin [Mass/volume] in Serum or Plasma Observa Value Referen Units Interpr Notes Date tion ce etation Range COMMENTS TO ENTERPRISE SYSTEMS ENGINEER: DO NOT NEED TO CALL PHARMACIST RADIOLOGY SCHEDULER WITH LEVEL DATE OF LAST DOSE: 05/17/17 [...]
--- NOTE | 2017-05-18 08:33 | HISTORY AND PHYSICAL REPORT ---
Demographics: Admit date: 05/18/17 Chief complaint: Swing bed admission PRIMARY DIAGNOSIS: Pseudomonas pneumonia Allergies: Coded Allergies: No Known Allergies (09/27/15) History of present illness: History of present illness: History of present illness on presentation to acute care 71 year old male with a history of HTN, CAD and COPD presented to the ED with increased shortness of breath and cough. Patient reports onset of cough and shortness of breath 2 weeks ago. He was seen by PCP and steroids were prescribed. Symptoms worsened this week and he went back to see his PCP. He was given more steroids and started on doxycycline 2 days ago. Patient states he became extremely short of breath last night and came to the ED for evaluation. Further reports productive cough and subjective temps. In the ED, CXR showed RUL pneumonia. He was also noted to have some mild leukocytosis. Patient was admitted to acute care for IV antibiotics, steroids and further evaluation. Hospital Course in acute care: Patient was admitted to hospital, standard IV antibiotic for started and patient responded somewhat to these but continue to have lots of shortness of air especially with exertion and some sputum production. Cultures returned yesterday morning showing Pseudomonas and Klebsiella species. Antibiotics were changed to Zosyn and gentamicin. Patient's tolerated the first dose of these. Given his Pseudomonas pneumonia status and need for double coverage for IV antibiotics patient will be transferred to swing bed today for at least 7 and possibly 10 days of IV antibiotics. Admission status to swing bed: Mental status is good, rehab potential good, prognosis is good. Discharge diagnoses from acute care Problem List 1. COPD (chronic obstructive pulmonary disease) with acute bronchitis 2. Pneumonia 3. Pseudomonas pneumonia Past medical history: Family HX Diabetes No CAD Yes Hypertension Yes Hyperlipidemia Yes Cancer No TB No Immunization HX DT/Tetanus 5-10 Years Ago Flu 2016-SN Pneumonia Never Had General CAD? Yes Angina: No DE: No Hypertension? No Hyperlipidemia? Yes CHF? No DVT? No PE? No COPD? Yes Asthma? Yes Anemia? No GERD? No Gastric ulcers? No GI Bleed? No Hernia? No Thyroid Problems? No Hypothyroidism? No CVA? No Seizures? Yes Diabetes? No Insulin Dependent: No Insulin Pump: No Home FSBS? No Renal Insuffiency? Yes UTI? No Stones? No BPH? No GB Disease: No Nephritic Syndrome? No Asplenia? No Hepatitis? No Sickle Cell Disease? No Arthritis? Yes Migraines? No Cataracts? No Glaucoma? No MRSA? No HIV? No TB? No Anxiety? No Depression? No Cancer? No More? Yes Additional hx: FACIAL FX 08/2015 Past Surgical HX Previous Surgery?Y CYST FROM BACK LT ANKLE CHEST TUBE STENTS X2 Current home meds: Active Scripts Prednisone (Prednisone 20MG) 20 MG PO DAILY #30 TAB Ref 5 Prov: 09/14/15 Reported Medications Atorvastatin Calcium (Atorvastatin) 80 MG PO QHS ALBUTEROL-IPRATROPIUM (Iprat-Albut 0.5-3(2.5) MG/3 Ml) 3 ML IH QID Albuterol (Albuterol-Hfa Inhaler) 1-2 PUFFS IH PRN PRN SOB #1 INH PHENYTOIN SODIUM EXTENDED (Phenytoin Sodium Extended) 400 MG PO QHS #120 CAPSULE Fluticasone Propionate (Flonase 50 Mcg Nasal [place]) 1 SPRAY NA DAILYP PRN CONGESTION #16 Carvedilol (Carvedilol 3.125MG) 3.125 MG PO BID Pantoprazole Sodium (Pantoprazole) 40 MG PO DAILY FLUTICASONE/SALMETEROL (Advair 500-50 Diskus) 1 PUFF IN BID Trazodone Hcl (Trazodone HCl) 50 MG PO QHS #30 ASPIRIN (Aspirin) 81 MG PO DAILY CLOPIDOGREL BISULFATE (Clopidogrel) 75 MG PO DAILY #30 Alendronate Sodium 70 MG PO WEEKLY #12 Doxycycline Hyclate 100 MG PO BID #20 Tiotropium [place] (Spiriva) 1 PUFF IH DAILY #30 Ferrous Sulfate (Ferrous Sulfate 325MG) 325 MG PO BID Social Hx: Smoking HX Packs/day N/A Alcohol Alcohol: No Hx of Drug Use Drug Use? No Patien't marital status is single Patient's support system is excellent Review of systems: Constitutional malaise, weakness. No: fever. Respiratory see HPI. Cardiovascular No no symptoms reported Gastrointestinal/Abdominal No no symptoms reported Genitourinary No: no symptoms reported. Musculoskeletal No: no symptoms reported. Neurological No: see HPI. Exam: Additional information: Patient alert, pleasant, ambulatory in the room, rhonchi in both lung john, heart rate regular, abdomen soft, no edema, neurologic exam intact. Plan: Problem List 1. Pseudomonas pneumonia 2. COPD (chronic obstructive pulmonary disease) with acute bronchitis Plan: Admit to swing bed, 10 days of intravenous Zosyn and tobramycin. [place] all other [place]. at 0832
[2017-05-18 09:55] VITALS: BP 134/87
--- NOTE | 2017-05-18 09:58 | PHARMACY CLINIC NOTE ---
Patient Demographics Patient Demographics Admission date: 05/18/17 Date: 05/18/17 Time: 09 Allergies Coded Allergies: No Known Allergies (09/27/15) HEIGHT- FT: 5 IN: 6.00 VTE General Information Disclaimer The following section includes nursing documentation that has been pulled in for pharmacy review. Clinical trial participant? No VTE prophylaxis NQF [id number] VTE prophylaxis ordered? Yes Type of prophylaxis/treatment: EDVIN at 0957
--- NOTE | 2017-05-18 11:54 | RADIOLOGY REPORT PS360 ---
CHEST PORTABLE-PICC PLACEMENT CLINICAL INDICATION: PICC LINE PLACEMENT ORDERING PHYSICIAN: Wilian Miller MD PATIENT AGE: 71 years COMPARISON: 05/13/2017 FINDINGS: Left upper 70 PICC line has been inserted with the tip in good position in the region of the superior vena cava. Previously noted right upper lobe infiltrate has shown improvement. Emphysematous changes once again noted. IMPRESSION: 1. Left upper 70 PICC line good position. 2. Improving right upper lobe pneumonia
[2017-05-18 19:48] VITALS: BP 146/90
[2017-05-18 19:59] VITALS: BP 146/90
[2017-05-19 07:30] VITALS: BP 131/82
[2017-05-19 07:50] VITALS: BP 131/82
[2017-05-19 16:33] VITALS: BP 119/70
[2017-05-19 19:35] VITALS: BP 117/69
[2017-05-19 21:00] VITALS: BP 117/69
[2017-05-20 07:48] VITALS: BP 127/80
--- NOTE | 2017-05-20 09:01 | CONSULT NOTE ---
Pharmacokinetic Consult Date of consult: 05/20/17 Time of consult: 858 Referring provider: DR. CHURCHILL Reason for consult: TOBRAMYCIN DOSING Allergies: Coded Allergies: No Known Allergies (09/27/15) Home Medications: Active Scripts Prednisone (Prednisone 20MG) 20 MG PO DAILY #30 TAB Ref 5 Prov: 09/14/15 Reported Medications Atorvastatin Calcium (Atorvastatin) 80 MG PO QHS ALBUTEROL-IPRATROPIUM (Iprat-Albut 0.5-3(2.5) MG/3 Ml) 3 ML IH QID Albuterol (Albuterol-Hfa Inhaler) 1-2 PUFFS IH PRN PRN SOB #1 INH PHENYTOIN SODIUM EXTENDED (Phenytoin Sodium Extended) 400 MG PO QHS #120 CAPSULE Fluticasone Propionate (Flonase 50 Mcg Nasal [place]) 1 SPRAY NA DAILYP PRN CONGESTION #16 Carvedilol (Carvedilol 3.125MG) 3.125 MG PO BID Pantoprazole Sodium (Pantoprazole) 40 MG PO DAILY FLUTICASONE/SALMETEROL (Advair 500-50 Diskus) 1 PUFF IN BID Trazodone Hcl (Trazodone HCl) 50 MG PO QHS #30 ASPIRIN (Aspirin) 81 MG PO DAILY CLOPIDOGREL BISULFATE (Clopidogrel) 75 MG PO DAILY #30 Alendronate Sodium 70 MG PO WEEKLY #12 Doxycycline Hyclate 100 MG PO BID #20 Tiotropium [place] (Spiriva) 1 PUFF IH DAILY #30 Ferrous Sulfate (Ferrous Sulfate 325MG) 325 MG PO BID Height (feet): 5 Height (inches): 6.00 Medical History: CAD? Yes Angina: No [place]: No Hypertension? No Hyperlipidemia? Yes CHF? No DVT? No PE? No COPD? Yes Asthma? Yes Anemia? No GERD? No Gastric ulcers? No GI Bleed? No Hernia? No Thyroid Problems? No Hypothyroidism? No CVA? No Seizures? Yes Diabetes? No Insulin Dependent: No Insulin Pump: No Home FSBS? No Renal Insuffiency? Yes UTI? No Stones? No BPH? No GB Disease: No Nephritic Syndrome? No Asplenia? No Hepatitis? No Sickle Cell Disease? No Arthritis? Yes Migraines? No Cataracts? No Glaucoma? No MRSA? No HIV? No TB? No Anxiety? No Depression? No Cancer? No More? Yes Additional hx: FACIAL FX 08/2015 Labs: Laboratory Tests 05/19/17 2145: Random Tobramycin 1.6 Problem List: 1. Pneumonia Plan: BASED ON PATIENT FACTORS, RECOMMEND CONTINUING CURRENT DOSE OF TOBRAMYCIN AT THIS TIME. PHARMACY WILL CONTINUE TO MONITOR AND ADJUST DOSE APPROPRIATE. at 0900
[2017-05-20 10:24] VITALS: BP 127/80
[2017-05-20 19:49] VITALS: BP 136/77
[2017-05-21 08:00] VITALS: BP 139/79
[2017-05-21 09:25] VITALS: BP 139/79
[2017-05-21 15:43] VITALS: BP 151/66
[2017-05-21 19:49] VITALS: BP 134/73
[2017-05-22 07:29] VITALS: BP 146/73
--- NOTE | 2017-05-22 08:13 | ACUTE CARE PROGRESS NOTE (QUA) ---
Progress Notes Subjective Date 05/22/17 Time 0813 Assessment/Plan Problem List 1. Pseudomonas pneumonia 2. COPD (chronic obstructive pulmonary disease) with acute bronchitis This inpt stay is expected to cross 2 MNs from start of care Yes Antibiotic Stewardship (2) Infxn that will respond? Yes Right drug,dose,and route? Yes More targeted antbx? No at 0813
--- NOTE | 2017-05-22 08:36 | ACUTE CARE PROGRESS NOTE (QUA) ---
Progress Notes Subjective Date 05/22/17 Time 0835 Note Patient ambulated in the hallway, feels much better. Does think his Dilantin dose is a little high. Patient looks great, much better exercise tolerance, no edema. Objective Findings Last VS-Temp:97.6 B/P:146/73 Pulse:76 Resp:20 SaO2:97 OXYGEN Last weight lbs:138 oz:0 K.596 Method:Bed Scales Assessment/Plan Problem List 1. Pseudomonas pneumonia 2. COPD (chronic obstructive pulmonary disease) with acute bronchitis Patient condition Improving Plan: continue current care, adjust Dilantin dose to home levels, check level. Continue swing bed care. This inpt stay is expected to cross 2 MNs from start of care Yes at 0836
[2017-05-22 09:00] VITALS: BP 146/73
[2017-05-22 19:56] VITALS: BP 112/68
[2017-05-23 08:22] VITALS: BP 125/77
[2017-05-23 08:26] VITALS: BP 125/77
[2017-05-23 16:00] VITALS: BP 128/73
[2017-05-23 19:51] VITALS: BP 137/76
[2017-05-24 08:10] VITALS: BP 133/76
[2017-05-24 09:05] VITALS: BP 133/76
--- NOTE | 2017-05-24 10:05 | CONSULT NOTE ---
Pharmacokinetic Consult Date of consult: 05/24/17 Time of consult: 1003 Referring provider: DR. CHURCHILL Reason for consult: TOBRAMYCIN TROUGH LEVEL Allergies: Coded Allergies: No Known Allergies (09/27/15) Home Medications: Active Scripts Prednisone (Prednisone 20MG) 20 MG PO DAILY #30 TAB Ref 5 Prov: 09/14/15 Reported Medications Atorvastatin Calcium (Atorvastatin) 80 MG PO QHS ALBUTEROL-IPRATROPIUM (Iprat-Albut 0.5-3(2.5) MG/3 Ml) 3 ML IH QID Albuterol (Albuterol-Hfa Inhaler) 1-2 PUFFS IH PRN PRN SOB #1 INH PHENYTOIN SODIUM EXTENDED (Phenytoin Sodium Extended) 400 MG PO QHS #120 CAPSULE Fluticasone Propionate (Flonase 50 Mcg Nasal [place]) 1 SPRAY NA DAILYP PRN CONGESTION #16 Carvedilol (Carvedilol 3.125MG) 3.125 MG PO BID Pantoprazole Sodium (Pantoprazole) 40 MG PO DAILY FLUTICASONE/SALMETEROL (Advair 500-50 Diskus) 1 PUFF IN BID Trazodone Hcl (Trazodone HCl) 50 MG PO QHS #30 ASPIRIN (Aspirin) 81 MG PO DAILY CLOPIDOGREL BISULFATE (Clopidogrel) 75 MG PO DAILY #30 Alendronate Sodium 70 MG PO WEEKLY #12 Tiotropium [place] (Spiriva) 1 PUFF IH DAILY #30 Ferrous Sulfate (Ferrous Sulfate 325MG) 325 MG PO BID Height (feet): 5 Height (inches): 6.00 Medical History: CAD? Yes Angina: No [place]: No Hypertension? No Hyperlipidemia? Yes CHF? No DVT? No PE? No COPD? Yes Asthma? Yes Anemia? No GERD? No Gastric ulcers? No GI Bleed? No Hernia? No Thyroid Problems? No Hypothyroidism? No CVA? No Seizures? Yes Diabetes? No Insulin Dependent: No Insulin Pump: No Home FSBS? No Renal Insuffiency? Yes UTI? No Stones? No BPH? No GB Disease: No Nephritic Syndrome? No Asplenia? No Hepatitis? No Sickle Cell Disease? No Arthritis? Yes Migraines? No Cataracts? No Glaucoma? No MRSA? No HIV? No TB? No Anxiety? No Depression? No Cancer? No More? Yes Additional hx: FACIAL FX 08/2015 Labs: Laboratory Tests 05/24/17 0925: Sodium 141, Potassium 3.8, Chloride 102, Carbon Dioxide 36 H, BUN 17, Creatinine 1.1, Estimated Creat Clear 55, Estimated GFR (MDRD) 66, Glucose 118 H, Calcium 8.7, Tobramycin [place] 0.5 Problem List: 1. Pseudomonas pneumonia Plan: BASED ON TOBRAMYCIN TROUGH LEVEL, RECOMMEND CONTINUING TOBRAMYCIN 440 MG IV Q24H. PHARMACY WILL CONTINUE TO MONITOR DAILY. at 4307
[2017-05-24 20:20] VITALS: BP 138/84
[2017-05-25 07:32] VITALS: BP 111/75
[2017-05-25 07:56] VITALS: BP 111/75
--- NOTE | 2017-05-25 08:37 | ACUTE CARE PROGRESS NOTE (QUA) ---
Progress Notes Subjective Date 05/25/17 Time 0836 Note Patient overall feels a little better with no fevers, but has some dyspnea especially with exertion. His lungs have diminished air movement but this is his baseline. He has regular heart rate. He has no edema. Objective Findings Last VS-Temp:98.0 B/P:111/75 Pulse:68 Resp:20 SaO2:96 OXYGEN Last weight lbs:138 oz:0 K.596 Method:Bed Scales Assessment/Plan Problem List 1. Pseudomonas pneumonia 2. COPD (chronic obstructive pulmonary disease) with acute bronchitis Patient condition Stable Plan: continue current care, good response to IV antibiotics. Check chest x-ray and administer IV Lasix. Possible fluid overload issues. Check labs today. This inpt stay is expected to cross 2 MNs from start of care Yes at 0836
[2017-05-25 09:53] LABS: HEMOGLOBIN 12.6 g/dL (14.1-18.0); LYMPH # 1.2 K/mm3 (0.7-4.5)
--- NOTE | 2017-05-25 11:11 | RADIOLOGY REPORT PS360 ---
CHEST(2 VIEWS-NOT PORTABLE) HISTORY: dyspnea ORDERING PHYSICIAN: Wilian Miller MD PATIENT AGE: 71 years COMPARISON: 05/18/2017 FINDINGS: The cardiomediastinal silhouette and pulmonary vascularity are within normal limits. Left upper extremity PICC line in place in good position with the tip in the region of the SVC. Lungs are clear. COPD with hyperinflation. No lobar consolidation or collapse. There is mild wedging of mid dorsal vertebral body unchanged from an older lateral chest x-ray of 09/27/2015. IMPRESSION: COPD, no change with no acute finding.
[2017-05-25 19:52] VITALS: BP 122/51
[2017-05-26 07:24] VITALS: BP 119/82
--- NOTE | 2017-05-26 07:41 | DISCHARGE SUMMARY STANDARD ---
Demographics Admit date: 05/18/17 Discharge date: 05/26/17 History of present illness History of present illness History of present illness on presentation to acute care 71 year old male with a history of HTN, CAD and COPD presented to the ED with increased shortness of breath and cough. Patient reports onset of cough and shortness of breath 2 weeks ago. He was seen by PCP and steroids were prescribed. Symptoms worsened this week and he went back to see his PCP. He was given more steroids and started on doxycycline 2 days ago. Patient states he became extremely short of breath last night and came to the ED for evaluation. Further reports productive cough and subjective temps. In the ED, CXR showed RUL pneumonia. He was also noted to have some mild leukocytosis. Patient was admitted to acute care for IV antibiotics, steroids and further evaluation. Hospital Course in acute care: Patient was admitted to hospital, standard IV antibiotic for started and patient responded somewhat to these but continue to have lots of shortness of air especially with exertion and some sputum production. Cultures returned yesterday morning showing Pseudomonas and Klebsiella species. Antibiotics were changed to Zosyn and gentamicin. Patient's tolerated the first dose of these. Given his Pseudomonas pneumonia status and need for double coverage for IV antibiotics patient will be transferred to swing bed today for at least 7 and possibly 10 days of IV antibiotics. Admission status to swing bed: Mental status is good, rehab potential good, prognosis is good. Discharge diagnoses from acute care Problem List 1. COPD (chronic obstructive pulmonary disease) with acute bronchitis 2. Pneumonia 3. Pseudomonas pneumonia Hospital Course Hospital Course: Patient was admitted to swing bed as noted above, tolerated IV antibiotics very nicely. Improved a very slow but steady fashion. Met his goals in regards to complete antibiotic therapy. Did well with respiratory toilet. This morning had a lateral rhonchi but at baseline, no crackles. No fluid overload evident. Heart rate regular, patient's alert, pleasant and oriented. 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 Follow up with pulmonary as scheduled. Discharge diagnoses Problem List 1. Pseudomonas pneumonia 2. COPD (chronic obstructive pulmonary disease) with acute bronchitis Medications Medications: Discharge meds are as noted. Follow up Follow up in office in: 3 DAYS with: Damian Harmon MD at 0740
[2017-05-26 09:00] VITALS: BP 119/82
[2017-05-26 14:32] VITALS: BP 120/80
== END 2017-05-26 14:15 | disposition home or self-care (01) | DRG 178 ==
LOC: 2ND 08:20
PROVIDERS: Internal Medicine Adolescent Medicine
DX: J15.1 Pneumonia due to Pseudomonas (principal); J44.0 Chronic obstructive pulmonary disease with (acute) lower respiratory infection; Z99.81 Dependence on supplemental oxygen; J44.9 Chronic obstructive pulmonary disease, unspecified; J20.9 Acute bronchitis, unspecified; I10 Essential (primary) hypertension; I25.10 Atherosclerotic heart disease of native coronary artery without angina pectoris
CPT/HCPCS: J2543